=== PATIENT | male | born 1965 | race Caucasian/White ===

== ENCOUNTER → 2018-02-11 09:41 | Outpatient (CLI) | payer OTHER, SELFPAY ==
[2018-02-11 11:22] LABS: Cholesterol 168 mg/dL (200); High Density Lipoprotein 39 mg/dL; Triglycerides 117 mg/dL; Very Low Density Lipoprotein 23 mg/dL (5-40)
[2018-02-13 10:13] LABS: Vitamin B12 523 pg/mL (211-911)
--- OUTSIDE RECORDS SUMMARY | 2018-05-17 09:15 | XMS RPT_ITS | Continuity of Care Document ---
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 unexpected p roblems, contact your Primary Care Provider. Call [facility] ([phone]) or report to the closest Emergency Room. Call 911 if necessary. 10/10/16 0812 <Electronically signed by Freddie Beltran MD> Date Freddie Beltran MD Cosigner Signature (If Indicated): Date CC: Diane Peralta DO 06-Oct-2016 Emergency Department Summary Result: Comments: See Note; NOTES: [facility] Medical Records Department [address] [place] [address] Emergency Department Summary 10/06/16 1503 MR#: [id number] Acct: [id number] Name: PRADEEP STYLES Rep #: [id number] : 1965 51 From: Freddie Beltran MD PCP: Diane Peralta DO Status: REG ER - ER Visit Summary Date of Service: 10/06/16 Chief Complaint: [] History of Present I llness: The patient is a 51 M [] Physical Examination: [] Test Results: [] Emergency Department Course and Treatment: [] Treatment Plan: [] Disposition: [] Impression: [] ED Disposition - Plan for ED Patient: Chief Complaint: Edema Instructions: ED Palsy Peroneal Nerve Prescriptions: Etodolac [Lodine] 300 mg PO TIDCM #30 capsule Referrals: Diane Peralta DO [Primary Care Provider] - 1 Week What to do if you have Problems For any increased pain, shortness of breath, bleeding, nausea or vomiting, chest pain, or any unexpected problems, contact your Primary Care Provider. Call Doctors Re gist ([phone]) or report to the closest Emergency Room. Call 911 if necessary. 10/06/16 1505 <Electronically signed by Freddie Beltran MD> Date Freddie Beltran MD Cosigner Signature (If Indicated): Date CC: Diane Peralta DO 05-Feb-2015 Spirometry ([id number]) Result: 22-Nov-2014 PT Discharge Summary Result: Comments: See Note; NOTES: [facility] Physical Therapy Health[address] [place] [address] Fax REHABILITATION SERVICES DISCHARGE SUMMARY MR#: [id number] Acct: [id number] Name: PRADEEP STYLES Rep #: [id number] : 1965 49 From: Abimael Otto Referring Dr.: OUT OF TOWN DOCTOR Status: REG RCR Eval Date: Dis charge Date: DATE OF SERVICE: DIAGNOSES: Dizziness, giddiness. PHYSICIAN: Dr. Kat. DATE OF DISCHARGE: November 21, 2014. Pradeep Styles was seen in my office for a total of 9 visits. He was seen initially back on October 18, 2014 with latest visit being on November 21, 2014 and was treated with right-sided Benny maneuver, which did seem to help with his dizziness. He was treated with balance and neck exercises, range of motion, manual therapy, stretching and ultrasound. He has progressed to the point where his balance is scoring 30/30 on the functional gait assessment. He is not complaining of any dizziness anymore and he still does have some right-sided neck pain, which is pretty common for him and some difficulty with some limited right rotation, cervical range of motio n. He rates his pain at 5/10 on the right side of his neck intermittently, but he is overall 80% better. He saw Dr. Kat last week. He has met both goals set for him here at the initial evaluation a nd at this point I am discontinuing him from physical therapy to continue his home exercise program. Abimael Otto, PT T: NTS JOB: [id number] <Electronically signed by Abimael Otto &#6 2; 11/22/14 0652 CC: Diane OLIVA Signed 06-Nov-2014 Brain/Head without Contrast Result: Comments: See Note; NOTES: [facility] Imaging Services [address] [place] [address] CAT Scan Report MR#: [id number] Acct: [id number] Name: PRADEEP STYLES Rep #: [id number] : 1965 M 49 From: Riaz Boateng DO PCP: Diane Peralta DO Status: REG CLI Study: Brain/Head without Contrast Date of Exam: 11/06/14 Exam# [id number] Ordering Dr: YOGESH NAGEL STUDY : CT BRAIN WITHOUT CONTRAST REASON FOR EXAM: Male, 49 years old. Near syncopal episode following a fall. RADIATION DOSAGE (If Supplied By Facility): CTDIvol = ( 58.44 ) mGy, DLP = ( 1044.77 ) mGyc m TECHNIQUE: Transaxial CT imaging of the brain was performed without administration of intravenous contrast material. COMPARISON: August 13, 2014. FINDINGS: Hypoattenuation changes are associated with the right frontal lobe along its inferior margin. The low-density changes in the adjacent white matter tracts noted on prior study have resolved. These low- density changes are likely secondary to atrophy or encephalomalacia and are best visualized on coronal imaging. Normal soft tissue structures. Normal calvarium. Normal size ventricles and extra-ax ial spaces for the patient's age. Normal white matter tracts of the cerebral hemispheres. Normal basal ganglia and thalami. Normal brainstem. Normal cerebellum. There is no intracranial hemorrhage. There are no findings of an acute ischemic infarction. There is significant membrane thickening identified in the left maxillary sinus and to a lesser extent the ethmoid sinuses predominantly on the left. No acute air-fluid level is demonstrated. There is some minimal membrane thickening in the sphenoid sinus. IMPRESSION: Subtle hypoattenuation is identifi ed along the inferior margin of the right frontal lobe. This is most consistent with focal atrophy or minimal encephalomalacia. The appearance is improved from the prior study. No acute hemorrhage o r asymmetric cerebral edema demonstrated on today's exam. Moderate chronic sinus inflammatory changes. Electronically Signed: Markos Harvey DO at 14:46 EDT , Service arenas pport [phone], CC: Diane Peralta DO; YOGESH NAGEL Extruder Operator Multiple: Signed 21-Oct-2014 Inital Evaluation - PT Result: Comments: See Note; NOTES: [facility] Physical Therapy [facility] [address] [place] [address]. [address] [place] [phone] Fax REHABILITATION SERVICES INITIAL EVALUATION MR#: [id number] Acct: [id number] Name: PRADEEP STYLES Rep #: [id number] : 1965 49 From: Abimael Otto Referring Dr.: OUT OF TOWN DOCTOR Status: REG RCR Insurance: Property [employer] [facility] Eval Date: Patient's Visit Information PRADEEP STYLES is a 49 year old M, referred to Physical Therapy by Out of Town Doctor, YOGESH OLIVA, with a diagnosis of vertig o. Date of Evaluation: 10/18/14 Physical Therapist: Abimael Otto - Visit Plan Frequency: 2-3x /Week Duration: 4-6 Weeks - Subjective Fell after standing and coughing hitting back of head at en d of May. Poor memory. Went to hospital and made sure bleeding stopped. No other treatment needed at the time. Happened in [place] and stayed down there for a while. Seeing neurologist and alexandrain g to find out why this happened. Sees head doctor at [facility]. Was at the Epiliepsy center and ruled out epilepsy. Is wearing a heart monitor to check out cardiac integrity. Equilibrium seems off at times is why he presents today. Happens with changes of position he thinks but memory is poor. Can't recall a pattern. Spins every once in a while if he turns too quick or gets up fast. Sometimes when he l ies in bed. Has been off work due to head injury and is not driving. has watched over him...can't be left alone. Dressing self and getting around at home OK. Putting shoes and sock on is more dif ficult then it used to be. Shoulders hurt intermittently. No recent falls otherwise. - Objective Good C/S AROM without pain. L HD no dizzy or nystagmus. R HD is positive for dizzy of 10 seconds, adan ated with Benny and education - Goals Goal 1:: abolish dizzyness Goal Time Frame: 4-6 Weeks Goal 2:: normal balance test, FGA Goal Time Frame: 4-6 Weeks - Rehabilitation Potential Rehabilitatio n Potential: Fair - Anticipated Interventions Patient/Client Instruction: Educate patient on: Condition, Plan of Care Comments: management condition For the Purpose of:: To improve ability to perfo rm ADL's Comment: vestibular exercises as needed(psoitional/adaptation/balance) For the Purpose of:: To increase tolerance to activity/condition/position Thank you for the opportunity to evaluate your patient. For Medicare and Medicare HMO plans, please review the plan of care and approve it. It will need to be FAXED BACK to us at [phone] for Medicare purposes. Please let me know if there are questions or concerns regarding this plan of care. Physician Signature: Date: <Electronically signed by Abimael hanna mp;#[id number]; 10/21/14 0653 CC: Diane OLIVA EBG Signed For Medicare only, by signing this I certify the plan of care. _ Physicians Signature Date 08-Oct-2014 Operative Report Result: Comments: See Note; NOTES: [facility] Medical Records Department [address] [place] [address] Operative Report MR#: [id number] Acct: [id number] Name: PRADEEP STYLES #: [id number] : 1965 49 From: Sreedhar Simmons MD PCP: Diane Peralta DO Status: REG CLI DATE OF SERVICE: A 49-year-old man with a history of recurrent syncope. PROCEDURE: Implantatio n of a patient-activated cardiac event recorder. INDICATION: Syncope. IMPLANTING PHYSICIAN: Dr. Sreedhar Simmons. DESCRIPTION OF PROCEDURE: The patient was brought to the cardiac catheterization lab in the postabsorptive nonsedated state. She was administered intravenous antibiotics with Ancef. Xylocaine 1% was used to anesthetize over the fourth left intercostal space after appropriate mapping. A stab incision was then made and a Tetra Tech Reveal Linq was deployed successfully. Serial # is [id number]. The patient tolerated the procedure well. Sreedhar Simmons MD T: NTS JOB: [id number] 10/08/14816 <Electronically signed by Sreedhar Simmons MD> Date Sreedhar Simmons MD Cosigner Signature (If Indicated): Date ___ CC: Sreedhar Simmons MD; Diane Peralta DO Date Dictated: 10/07/14916 Date Transcribed: 10/07/14916 Extruder Operator Multiple: Signed 13-Aug-2014 Brain/Head without Contrast Result: Comments: See Note; NOTES: [facility] Imaging Services [address] [place] [address] CAT Scan Report MR#: [id number] Acct: [id number] Name: PRADEEP STYLES Rep #: [id number] : 1965 M 49 From: Sai Mcclure MD PCP: Diane Peralta DO Status: REG CLI Study: Brain/Head without Contrast Date of Exam: 08/13/14 Exam# [id number] Ordering Dr: HERMINIO OLIVER STUDY: CT BRAIN WITHOUT CONTRAST REASON FOR EXAM: Male, 49 years old. Headaches following head trauma. RADIATION DOSAGE (If Supplied By Facility): CTDIvol = ( 58.42 ) mGy, DLP = ( 1044.40 ) mGyc m TECHNIQUE: Transaxial CT imaging of the brain was performed without administration of intravenous contrast material. COMPARISON: Comparison is made with prior study dated April 14, 2013. ____ FINDINGS: Normal soft tissue structures. Normal calvarium. Normal size ventricles and extra-axial spaces for the patient's age. There now is evidence of a focal are a of decreased attenuation along the inferior aspect of the right frontal lobe anteriorly. This is within the white matter. No significant mass effect is seen. Correlation with enhanced CT scan is re commended. Normal basal ganglia and thalami. Normal brainstem. Normal cerebellum. There is no intracranial hemorrhage. There are no findings of an acute ischemic infarction. Normal visualized para nasal sinuses. There is nasal septal deviation towards the left side of the midline. IMPRESSION: Focal area of decreased attenuation is seen in the right frontal lobe along the inferior aspect. This may be related to the recent trauma. A repeat CT scan following IV contrast is recommended. Electronically Signed: Sai Mcclure MD at 8:46 E DT Tel [phone], Service support [phone], CC: Diane Peralta DO; HERMINIO OLIVER Extruder Operator Multiple: Signed 19-Nov-2013 B 12 Injection, 1000 mcg ([id number]) Result: Comments: lot [id number] 10/2013location ldeltoidroute imgiven by - msmith VIS and/or ABN signed 02-May-2013 Carotid Duplex Ultrasound Result: Comments: See Note; NOTES: [facility] Cardiovascular Services [address] [place] [address] Carotid Duplex Ultrasound 05/01/13 0849 MR#: [id number] Acct: [id number] Ayush e: PRADEEP STYLES Rep #: [id number] : 1965 48 From: Raymond Fofana MD Attending Dr: Kelsy Villanueva Status: REG CLI Ordering Dr: Kelsy Villanueva Date: 05/01/13 Location: [facility] Sex: M C Admitted: Rt. Velocities/BP Lt. Velocities/BP Prox CCA 85.6/32.2 cm/sec. Prox CCA 89.1/ 24.0 cm/sec. Mid CCA 72.1/23.5 cm/sec. Mid CCA 80.9/28.7 cm/sec. Dist CCA 71.5/27.0 cm/sec. Dist CCA 70.4/ 28.7 cm/sec. Prox ICA 53.4/20.8 cm/sec. Prox ICA 65.7/ 31.1 cm/sec. Mid ICA 56.2/25.9 cm/sec. Mid ICA 76.2/40.5 cm/sec. Dist ICA 73.9/32.2 cm/sec. Dist ICA 70.4/ 30.5 cm/sec. Rt. ICA/CCA = 1.0. Lt. ICA/CCA = . 94. Prox ECA 70.9/18.2 cm/sec. Prox ECA 78.6/ 24.0 cm/sec. Rt. Vert. 52.2/15.8 cm/sec. Lt. Vert. 45.2/ 18.9 cm/sec. Right Extracranial There is no significant atherosclerotic plaque noted in the ri ght common carotid artery. There is no significant atherosclerotic plaque noted in the right internal carotid artery. There is no significant atherosclerotic plaque noted in the right external carot id artery. Antegrade flow is noted in the right vertebral artery. Left Extracranial There is no significant atherosclerotic plaque noted in the left common carotid artery. There is no significant atherosclerotic plaque noted in the left internal carotid artery. There is no significant atherosclerotic plaque noted in the left external carotid artery. Antegrade flow is noted in the left verteb ral artery. Procedure Carotid Duplex 61402. Exam performed in department. Interpretation Summary Mild (<50%) stenosis right extracranial internal carotid. Mild (<50%) stenosis lef t extracranial internal carotid. Flow within the vertebral arteries is antegrade bilaterally. Ordering Physician: Kelsy Villanueva Referring Physician: Diane Peralta M.D. Performed By: Katiuska Rucker RVT : Kelsy Peralta DO Date Dictated: 05/01/13 0849 Date Transcribed: 05/02/13 1115 Extruder Operator Multiple: Signed 4-Mar-2014 Echocardiogram Complete Result: Comments: See Note; NOTES: [facility] Cardiovascular Services [address] [place] [address] Echo Complete 05/01/13 0952 MR#: [id number] Acct: [id number] Name: THERESA STYLES Rep #: [id number] : 1965 48 From: Herminio Barry MD Attending Dr: Kelsy Villanueva Status: REG CLI Ordering Dr: Kelsy Villanueva Date: 05/01/13 Location: [facility] Sex: M C Admitted: Procedure This was a 2D Doppler, Color Flow transthoracic echocardiogram. The exam was of adequate technical quality. Exam performed in department. Left Ventricle Normal LV size. Mild concentric left ventric ular hypertrophy. Left ventricular systolic function is normal. The estimated ejection fraction is 65 %. Transmitral doppler flow suggestive of impaired relaxation of left ventricle. Right Ventric le Normal RV size. Normal systolic function. Atria Normal left atrium. Normal right atrium. No doppler evidence for ASD. Mitral Valve There is no mitral annular calcification. Normal mitral valve . Tricuspid Valve Normal tricuspid valve. Trivial tricuspid valve insufficiency. Aortic Valve Trisinus/trileaflet aortic valve. Normal aortic valve. Pulmonic Valve The pulmonic valve is not wel l visualized. Great Vessels Normal sized aortic root. Pericardium/Pleural No pericardial effusion. LVIDd: 3.9 cm IVSd: 1.3 cm Ao root diam: 3.4 cm LAV(MOD-bp): 42.3 ml LVIDs: 2.4 cm LVPWd: 1. 3 cm Ao root area: 9.2 cm2 LAV(MOD-bp) Indexed: 20.3 ml/m2 RVDd: 3.2 cm FS: 37.8 % LA dimension: 3.4 cm LAV(MOD-sp2): 38.1 ml LAV(MOD-sp4): 42.4 ml LA A4 area: 17.1 cm2 RA A4 area: 13.7 cm2 MV E max daniel: Lat Peak E' Daniel: Med Peak E' Daniel: Ao V2 max: 72.7 cm/sec 13.1 cm/sec 14.1 cm/sec 129.5 cm/sec MV A max v el: Ao max P.7 mmHg 90.8 cm/sec MV E/A: 0.80 LV V1 max: 127.7 cm/sec PA V2 max: 97.4 cm/sec E/E' lat: 5.6 E /E ' med: 5.2 LV V1 max P.5 mmHg PA max P.8 mmHg Interpretation Summary Left ventricular systolic function is normal. The estimated ejection fraction is 65 %. Mild concentric left ventricular hypertrophy. Trivial tricuspid valve insufficiency. Transmitral doppler flow suggestive of impaired relaxation of left ventricle Ordering Physician: Kelsy Villanueva Referring Physician: Diane Peralta M.D. Performed By: Dianne Collins RDCS Electronically signed by: Herminio Barry MD on 05/2013 06:35 PM CC: Kelsy Peralta DO Date Dictated: 05/01/13 0952 Date Transcribed: 05/01/13 1835 Extruder Operator Multiple: Signed 01-May-2013 Nuclear Stress Test - Chemical Result: Comments: See Note; NOTES: [facility] Imaging Services [address] [place] [address] Nuclear Medicine Report MR#: [id number] Acct: [id number] Name: PRADEEP STYLES Rep # : [id number] : 1965 M 48 From: Herminio Barry MD PCP: Diane Peralta DO Status: REG CLI Study: Nuclear Stress Test - Chemical Date of Exam: 05/01/13 Exam# [id number] Ordering Dr: Kourtney Villanueva EXERCISE TOLERANCE TEST: The patient exercised on a Toby protocol for 12 minutes completing state 4 achieving a peak heart rate of 171 beats per minute (100% predicted maximum heart rate) and a peak blood pressure of 168/82 mmHg and a peak MET capacity of approximately 13 METS. The baseline ECG demonstrated normal sinus rhythm. The peak exercise ECG demonstrated no obvious ECG changes. There were no cardiac dysrhythmias pretest, during exercise, or recovery. The functional capacity was considered excellent. The patient had no complaint of chest discomfort during exercise or shane very. The examination was discontinued secondary to dyspnea. IMPRESSION: 1. Technically adequate (percent predicted maximum heart rate greater than 85%) exercise tolerance test. 2. Negative (adequ ate) ECG exercise tolerance test. 3. Nuclear images pending. MYOCARDIAL PERFUSION IMAGING STUDY: TECHNIQUE: The patient was injected with 11.6 mCi of Tc99m Cardiolite and subsequently rest SPECT C ardiolite nuclear imaging was obtained in the horizontal long, vertical long, and short axes views. The patient exercised on a Toby protocol for 12 minutes achieving a peak heart rate of 171 beats pe r minute (100% predicted maximum heart rate) with a peak blood pressure of 168/82 mmHg and a peak MET capacity of approximately 13 METS. The patient was injected with 33.1 mCi of Tc99m Cardiolite and subsequently stress SPECT Cardiolite nuclear imaging was obtained in the horizontal long, vertical long, and short axes views. A gated Cardiolite study at peak stress was obtained. INTERPRETATION: Rest and stress SPECT Cardiolite nuclear imaging demonstrate at rest extracardiac/hepatic and gastrointestinal tracer uptake, which appears to be less prominent and/or absent following stress. There is notation of an element of diminished tracer uptake in portions of the basal inferoseptal and basal inferior segments, which appear to be somewhat more prominent at rest as opposed to stress. Otherw ise, there appears to be relative uniform tracer uptake. There was end systolic thickening and brightening. The gated Cardiolite study demonstrates myocardial thickening and inward wall motion. The re ported LVEF is 58%. There were no myocardial perfusion changes considered diagnostic for stress induced myocardial ischemia or previous myocardial injury/infarction. IMPRESSION: 1. Rest and stress S PECT Cardiolite nuclear imaging demonstrate myocardial perfusion changes appearing compatible with the effects of soft tissue attenuation/artifact with no myocardial perfusion changes considered diagn ostic for stress induced myocardial ischemia or previous myocardial injury/infarction. 2. The gated Cardiolite study reports an LVEF of 58%. CC: Kelsy Villanueva; Diane Peralta DO Extruder Operator Multiple: TEODORO Signed 16-Jan-2013 Foot min 3 Views Result: Comments: See Note; NOTES: [facility] Imaging Services [address] [place] [address] Radiology Report MR#: [id number] Acct: [id number] Name: PRADEEP STYLES Rep #: [id number] : 1965 M 47 From: Sai Mcclure MD PCP: Diane Peralta DO Status: REG CLI Study: Foot min 3 Views Date of Exam: 01/16/13 Exam# [id number] Ordering Dr: Kelsy Villanueva STUDY: X-RA Y - RIGHT FOOT CLINICAL: Male, 47 years old. Pain at the base of the fifth metatarsal. TECHNIQUE: 3 view(s) of the foot. COMPARISON: None. FINDINGS: There i s a plantar calcaneal spur. A spur is seen at the insertion of the Achilles tendon. Normal visualized subtalar, talonavicular, calcaneocuboid, tarsal and tarsometatarsal articulations. Normal meta tarsi. Normal metatarsophalangeal joint of the great toe. Normal tibial and fibular sesamoid bones. Normal interphalangeal joint of the great toe. Normal phalanges of the great toe. Normal second through fifth metatarsophalangeal joints. Normal interphalangeal joints and phalanges of the lesser toes. The soft tissue structures are unremarkable. IMPRESSIO N: Calcaneal spurs. Signed: Sai Mcclure M.D. January 16, 2013 at 12:37:26 PM EST [phone] Electronically Signed GP/GP If you are the referring physician and would like to consult with the radiologist who provided this interpretation, please contact Sai Mcclure M.D. at [phone]. If this radiologist is unavailable, you will be directed to another radiologist to ass ist. If you are a patient with a question regarding this report, please contact your referring physician directly. Professional Interpretation Provided By: [employer], Phone , Fax These documents contain legally protected and confidential health information intended only for the use of the individual or entity named above. If you are not the intended recipient, you are hereby notified that any disclosure, copying, distribution, or other use of these documents is strictly prohibited. If you have received this information in error, please notify the sender immed iately and arrange for the return or destruction of these documents. 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 Comments: 01/01/11, 04/23/11, 05/07/11, 06/10/11 Status: Active Tobacco use: Current every day smoker. Status: Active Tobacco use: Current some day smoker. Status: Active Smoking Status Name Dates Details Current every day smoker Current some day smoker Vital Signs Date Test Result Details [id number] Temperature 97.9 f Pulse 78 /min Comments: Pattern: Regular Respiration Rate 18 /min Comments: Pattern: Unlabored O2 SAT 98 % Comments: Room air BP Systolic 132 mm[Hg] Comments: Patient Position: Sitting; Cuff Location: Left Arm; Cuff Size: Standard BP Diastolic 76 mm[Hg] Comments: Patient Position: Sitting; Cuff Location: Left Arm; Cuff Size: Standard Weight 224 lb Height 69 in Body Mass Index Calculated 33.08 kg/m2 Body Surface Area Calculated 2.17 m2 :40 Temperature 97.6 f Pulse 81 /min Comments: Pattern: Regular Respiration Rate 15 /min Comments: Pattern: Unlabored O2 SAT 97 % Comments: Room air BP Systolic 122 mm[Hg] Comments: Patient Position: Sitting; Cuff Location: Left Arm; Cuff Size: Standard BP Diastolic 82 mm[Hg] Comments: Patient Position: Sitting; Cuff Location: Left Arm; Cuff Size: Standard Weight 228 lb Height 69 in Body Mass Index Calculated 33.67 kg/m2 Body Surface Area Calculated 2.18 m2 [id number]-Uyw-[id number]:41 Temperature 98.2 f Comments: Method: Temporal Pulse 72 /min Comments: Pattern: Regular Respiration Rate 16 /min Comments: Pattern: Unlabored O2 SAT 97 % Comments: Room air BP Systolic 112 mm[Hg] Comments: Patient Position: Sitting; Cuff Location: Left Arm; Cuff Size: Standard BP Diastolic 78 mm[Hg] Comments: Patient Position: Sitting; Cuff Location: Left Arm; Cuff Size: Standard Weight 228 lb Height 69 in Body Mass Index Calculated 33.67 kg/m2 Body Surface Area Calculated 2.18 m2 :49 Pulse 62 /min Comments: Pattern: Regular Respiration Rate 16 /min Comments: Pattern: Unlabored O2 SAT 96 % Comments: Room air BP Systolic 104 mm[Hg] Comments: Patient Position: Sitting; Cuff Location: Left Arm; Cuff Size: Standard BP Diastolic 68 mm[Hg] Comments: Patient Position: Sitting; Cuff Location: Left Arm; Cuff Size: Standard Weight 223 lb Height 69 in Body Mass Index Calculated 32.93 kg/m2 Body Surface Area Calculated 2.16 m2 :08 Pulse 70 /min Comments: Pattern: Regular Respiration Rate 18 /min Comments: Pattern: Unlabored O2 SAT 94 % Comments: Room air BP Systolic 118 mm[Hg] Comments: Patient Position: Sitting; Cuff Location: Left Arm; Cuff Size: Standard BP Diastolic 70 mm[Hg] Comments: Patient Position: Sitting; Cuff Location: Left Arm; Cuff Size: Standard Weight 223 lb Height 69 in Body Mass Index Calculated 32.93 kg/m2 Body Surface Area Calculated 2.16 m2 :36 Pulse 70 /min Comments: Pattern: Regular Respiration Rate 18 /min Comments: Pattern: Unlabored O2 SAT 97 % Comments: Room air BP Systolic 120 mm[Hg] Comments: Patient Position: Sitting; Cuff Location: Left Arm; Cuff Size: Large BP Diastolic 78 mm[Hg] Comments: Patient Position: Sitting; Cuff Location: Left Arm; Cuff Size: Large Weight 223 lb Height 69 in Body Mass Index Calculated 32.93 kg/m2 Body Surface Area Calculated 2.16 m2 :50 Pulse 77 /min Comments: Pattern: Regular Respiration Rate 20 /min Comments: Pattern: Unlabored O2 SAT 98 % Comments: Room air BP Systolic 122 mm[Hg] Comments: Patient Position: Sitting; Cuff Location: Left Arm; Cuff Size: Large BP Diastolic 80 mm[Hg] Comments: Patient Position: Sitting; Cuff Location: Left Arm; Cuff Size: Large Weight 229.5 lb Height 69 in Body Mass Index Calculated 33.89 kg/m2 Body Surface Area Calculated 2.19 m2 :46 Temperature 97.8 f Comments: Method: Temporal Pulse 83 /min Comments: Pattern: Regular Respiration Rate 16 /min Comments: Pattern: Unlabored O2 SAT 98 % Comments: Room air BP Systolic 126 mm[Hg] Comments: Patient Position: Sitting; Cuff Location: Left Arm; Cuff Size: Large BP Diastolic 80 mm[Hg] Comments: Patient Position: Sitting; Cuff Location: Left Arm; Cuff Size: Large Weight 217.25 lb Height 69 in Body Mass Index Calculated 32.08 kg/m2 Body Surface Area Calculated 2.14 m2 :25 Temperature 96.4 f Comments: Method: Tympanic Pulse 56 /min Comments: Pattern: Regular Respiration Rate 18 /min Comments: Pattern: Unlabored O2 SAT 97 % Comments: Room air BP Systolic 100 mm[Hg] Comments: Patient Position: Sitting; Cuff Location: Left Arm; Cuff Size: Standard BP Diastolic 72 mm[Hg] Comments: Patient Position: Sitting; Cuff Location: Left Arm; Cuff Size: Standard Weight 217.25 lb Height 69 in Body Mass Index Calculated 32.08 kg/m2 Body Surface Area Calculated 2.14 m2 :17 Temperature 96.8 f Comments: Method: Temporal Respiration Rate 17 /min Comments: Pattern: Unlabored O2 SAT 97 % Comments: Room air BP Systolic 138 mm[Hg] Comments: Patient Position: Sitting; Cuff Location: Left Arm; Cuff Size: Large BP Diastolic 74 mm[Hg] Comments: Patient Position: Sitting; Cuff Location: Left Arm; Cuff Size: Large Weight 217.25 lb Height 69 in Body Mass Index Calculated 32.08 kg/m2 Body Surface Area Calculated 2.14 m2 :00 Temperature 97.6 f Comments: Method: Temporal Pulse 83 /min Comments: Pattern: Regular Respiration Rate 17 /min Comments: Pattern: Unlabored O2 SAT 97 % Comments: Room air BP Systolic 122 mm[Hg] Comments: Patient Position: Sitting; Cuff Location: Left Arm; Cuff Size: Standard BP Diastolic 80 mm[Hg] Comments: Patient Position: Sitting; Cuff Location: Left Arm; Cuff Size: Standard Weight 208.3125 lb Height 69 in Body Mass Index Calculated 30.76 kg/m2 Body Surface Area Calculated 2.1 m2 :26 Temperature 97.7 f Comments: Method: Oral Pulse 80 /min Comments: Pattern: Regular Respiration Rate 18 /min Comments: Pattern: Unlabored O2 SAT 95 % Comments: Room air BP Systolic 120 mm[Hg] Comments: Patient Position: Sitting; Cuff Location: Left Arm; Cuff Size: Large BP Diastolic 72 mm[Hg] Comments: Patient Position: Sitting; Cuff Location: Left Arm; Cuff Size: Large Weight 208.3125 lb Height 69 in Body Mass Index Calculated 30.76 kg/m2 Body Surface Area Calculated 2.1 m2 :53 Pulse 97 /min Comments: Pattern: Regular Respiration Rate 16 /min Comments: Pattern: Unlabored O2 SAT 99 % Comments: Room air BP Systolic 130 mm[Hg] Comments: Patient Position: Sitting; Cuff Location: Left Arm; Cuff Size: Standard BP Diastolic 86 mm[Hg] Comments: Patient Position: Sitting; Cuff Location: Left Arm; Cuff Size: Standard Weight 208.3125 lb Height 69 in Body Mass Index Calculated 30.76 kg/m2 Body Surface Area Calculated 2.1 m2 :02 Temperature 98.6 f Comments: Method: Oral Pulse 82 /min Comments: Pattern: Regular Respiration Rate 17 /min O2 SAT 97 % Comments: Room air BP Systolic 132 mm[Hg] Comments: Patient Position: Sitting; Cuff Location: Left Arm; Cuff Size: Standard BP Diastolic 82 mm[Hg] Comments: Patient Position: Sitting; Cuff Location: Left Arm; Cuff Size: Standard Weight 207 lb Height 69 in Body Mass Index Calculated 30.57 kg/m2 Body Surface Area Calculated 2.1 m2 :12 Temperature 98 f Pulse 78 /min Comments: Pattern: Regular Respiration Rate 16 /min Comments: Pattern: Unlabored BP Systolic 122 mm[Hg] Comments: Patient Position: Sitting; Cuff Location: Left Arm; Cuff Size: Large BP Diastolic 86 mm[Hg] Comments: Patient Position: Sitting; Cuff Location: Left Arm; Cuff Size: Large Weight 207 lb Height 69 in Body Mass Index Calculated 30.57 kg/m2 Body Surface Area Calculated 2.1 m2 :33 Pulse 70 /min Comments: Pattern: Regular Respiration Rate 18 /min Comments: Pattern: Unlabored O2 SAT 96 % Comments: Room air BP Systolic 118 mm[Hg] Comments: Patient Position: Sitting; Cuff Location: Left Arm; Cuff Size: Large BP Diastolic 80 mm[Hg] Comments: Patient Position: Sitting; Cuff Location: Left Arm; Cuff Size: Large Weight 216.375 lb Height 69 in Body Mass Index Calculated 31.95 kg/m2 Body Surface Area Calculated 2.14 m2 :18 Temperature 98.6 f Comments: Method: Oral Pulse 82 /min Comments: Pattern: Regular Respiration Rate 16 /min O2 SAT 98 % Comments: Room air BP Systolic 126 mm[Hg] Comments: Patient Position: Sitting; Cuff Location: Left Arm; Cuff Size: Standard BP Diastolic 72 mm[Hg] Comments: Patient Position: Sitting; Cuff Location: Left Arm; Cuff Size: Standard Weight 209 lb Height 69 in Body Mass Index Calculated 30.86 kg/m2 Body Surface Area Calculated 2.1 m2 :40 Temperature 98.6 f Comments: Method: Oral Pulse 86 /min Comments: Pattern: Regular Respiration Rate 18 /min O2 SAT 96 % Comments: Room air BP Systolic 124 mm[Hg] Comments: Patient Position: Sitting; Cuff Location: Left Arm; Cuff Size: Standard BP Diastolic 76 mm[Hg] Comments: Patient Position: Sitting; Cuff Location: Left Arm; Cuff Size: Standard Weight 198.125 lb Height 69 in Body Mass Index Calculated 29.26 kg/m2 Body Surface Area Calculated 2.06 m2 :26 Temperature 98 f Comments: Method: Oral Pulse 68 /min Comments: Pattern: Regular Respiration Rate 18 /min O2 SAT 98 % Comments: Room air BP Systolic 130 mm[Hg] Comments: Patient Position: Sitting; Cuff Location: Left Arm; Cuff Size: Standard BP Diastolic 88 mm[Hg] Comments: Patient Position: Sitting; Cuff Location: Left Arm; Cuff Size: Standard Weight 198.125 lb Height 69 in Body Mass Index Calculated 29.26 kg/m2 Body Surface Area Calculated 2.06 m2 :19 Temperature 98.6 f Comments: Method: Oral Pulse 80 /min Comments: Pattern: Regular O2 SAT 97 % Comments: Room air BP Systolic 120 mm[Hg] Comments: Patient Position: Sitting; Cuff Location: Left Arm; Cuff Size: Standard BP Diastolic 72 mm[Hg] Comments: Patient Position: Sitting; Cuff Location: Left Arm; Cuff Size: Standard Weight 198.125 lb Height 69 in Body Mass Index Calculated 29.26 kg/m2 Body Surface Area Calculated 2.06 m2 :20 Temperature 97.8 f Comments: Method: Oral Pulse 74 /min Comments: Pattern: Regular Respiration Rate 18 /min Comments: Pattern: Unlabored O2 SAT 94 % Comments: Room air BP Systolic 118 mm[Hg] Comments: Patient Position: Sitting; Cuff Location: Left Arm; Cuff Size: Standard BP Diastolic 70 mm[Hg] Comments: Patient Position: Sitting; Cuff Location: Left Arm; Cuff Size: Standard Weight 198.125 lb Height 69 in Body Mass Index Calculated 29.26 kg/m2 Body Surface Area Calculated 2.06 m2 :37 Temperature 98.1 f Comments: Method: Oral Pulse 76 /min Comments: Pattern: Regular Respiration Rate 16 /min BP Systolic 110 mm[Hg] Comments: Patient Position: Sitting; Cuff Location: Left Arm; Cuff Size: Standard BP Diastolic 70 mm[Hg] Comments: Patient Position: Sitting; Cuff Location: Left Arm; Cuff Size: Standard Weight 202.4375 lb Height 69 in Body Mass Index Calculated 29.89 kg/m2 Body Surface Area Calculated 2.08 m2 :13 Temperature 98.2 f Comments: Method: Oral Pulse 68 /min Comments: Pattern: Regular Respiration Rate 18 /min O2 SAT 98 % Comments: Room air BP Systolic 100 mm[Hg] Comments: Patient Position: Sitting; Cuff Location: Left Arm; Cuff Size: Standard BP Diastolic 72 mm[Hg] Comments: Patient Position: Sitting; Cuff Location: Left Arm; Cuff Size: Standard Weight 202.4375 lb Height 69 in Body Mass Index Calculated 29.89 kg/m2 Body Surface Area Calculated 2.08 m2 :54 Temperature 98.8 f Comments: Method: Oral Pulse 72 /min Comments: Pattern: Regular Respiration Rate 16 /min Comments: Pattern: Unlabored BP Systolic 98 mm[Hg] Comments: Patient Position: Sitting; Cuff Location: Left Arm; Cuff Size: Large BP Diastolic 58 mm[Hg] Comments: Patient Position: Sitting; Cuff Location: Left Arm; Cuff Size: Large Weight 194.3125 lb Height 69 in Body Mass Index Calculated 28.69 kg/m2 Body Surface Area Calculated 2.04 m2 :45 Pulse 80 /min Comments: Pattern: Regular Respiration Rate 20 /min Comments: Pattern: Unlabored BP Systolic 120 mm[Hg] Comments: Patient Position: Sitting; Cuff Location: Left Arm; Cuff Size: Standard BP Diastolic 80 mm[Hg] Comments: Patient Position: Sitting; Cuff Location: Left Arm; Cuff Size: Standard Weight 194.3125 lb Height 69 in Body Mass Index Calculated 28.69 kg/m2 Body Surface Area Calculated 2.04 m2 :19 Temperature 97.8 f Comments: Method: Oral Pulse 76 /min Comments: Pattern: Regular Respiration Rate 18 /min Comments: Pattern: Unlabored BP Systolic 120 mm[Hg] Comments: Patient Position: Sitting; Cuff Location: Left Arm; Cuff Size: Standard BP Diastolic 72 mm[Hg] Comments: Patient Position: Sitting; Cuff Location: Left Arm; Cuff Size: Standard Weight 191 lb Height 69 in Body Mass Index Calculated 28.21 kg/m2 Body Surface Area Calculated 2.03 m2 :22 Temperature 98.4 f Comments: Method: Oral Pulse 64 /min Comments: Pattern: Regular Respiration Rate 18 /min O2 SAT 99 % Comments: Room air BP Systolic 126 mm[Hg] Comments: Patient Position: Sitting; Cuff Location: Left Arm; Cuff Size: Standard BP Diastolic 78 mm[Hg] Comments: Patient Position: Sitting; Cuff Location: Left Arm; Cuff Size: Standard Weight 189.125 lb Height 69 in Body Mass Index Calculated 27.93 kg/m2 Body Surface Area Calculated 2.02 m2 :18 Pulse 78 /min Comments: Pattern: Regular Respiration Rate 18 /min Comments: Pattern: Unlabored BP Systolic 120 mm[Hg] Comments: Patient Position: Sitting; Cuff Location: Left Arm; Cuff Size: Standard BP Diastolic 74 mm[Hg] Comments: Patient Position: Sitting; Cuff Location: Left Arm; Cuff Size: Standard Weight 189.125 lb Height 69 in Body Mass Index Calculated 27.93 kg/m2 Body Surface Area Calculated 2.02 m2 :52 Temperature 97.9 f Comments: Method: Oral Pulse 88 /min Comments: Pattern: Regular Respiration Rate 18 /min Comments: Pattern: Unlabored O2 SAT 94 % Comments: Room air BP Systolic 124 mm[Hg] Comments: Patient Position: Sitting; Cuff Location: Left Arm; Cuff Size: Standard BP Diastolic 78 mm[Hg] Comments: Patient Position: Sitting; Cuff Location: Left Arm; Cuff Size: Standard Weight 191.125 lb Height 69 in Body Mass Index Calculated 28.22 kg/m2 Body Surface Area Calculated 2.03 m2 :03 Temperature 97.5 f Comments: Method: Oral Pulse 68 /min Comments: Pattern: Regular Respiration Rate 20 /min Comments: Pattern: Unlabored BP Systolic 122 mm[Hg] Comments: Patient Position: Sitting; Cuff Location: Left Arm; Cuff Size: Standard BP Diastolic 82 mm[Hg] Comments: Patient Position: Sitting; Cuff Location: Left Arm; Cuff Size: Standard Weight 191.25 lb Height 69 in Body Mass Index Calculated 28.24 kg/m2 Body Surface Area Calculated 2.03 m2 :47 Pulse 80 /min Comments: Pattern: Regular Respiration Rate 20 /min Comments: Pattern: Unlabored BP Systolic 118 mm[Hg] Comments: Patient Position: Sitting; Cuff Location: Left Arm; Cuff Size: Large BP Diastolic 80 mm[Hg] Comments: Patient Position: Sitting; Cuff Location: Left Arm; Cuff Size: Large Weight 190.1875 lb Height 69 in Body Mass Index Calculated 28.09 kg/m2 Body Surface Area Calculated 2.02 m2 :19 Temperature 97.9 f Comments: Method: Oral Pulse 76 /min Comments: Pattern: Regular O2 SAT 97 % Comments: Room air BP Systolic 134 mm[Hg] Comments: Patient Position: Sitting; Cuff Location: Left Arm; Cuff Size: Standard BP Diastolic 82 mm[Hg] Comments: Patient Position: Sitting; Cuff Location: Left Arm; Cuff Size: Standard Weight 186.125 lb Height 69 in Body Mass Index Calculated 27.49 kg/m2 Body Surface Area Calculated 2 m2 :32 Pulse 76 /min Comments: Pattern: Regular Respiration Rate 17 /min Comments: Pattern: Unlabored BP Systolic 124 mm[Hg] Comments: Patient Position: Sitting; Cuff Location: Left Arm; Cuff Size: Standard BP Diastolic 78 mm[Hg] Comments: Patient Position: Sitting; Cuff Location: Left Arm; Cuff Size: Standard Weight 186.125 lb Height 69 in Body Mass Index Calculated 27.49 kg/m2 Body Surface Area Calculated 2 m2 :02 Pulse 68 /min Comments: Pattern: Regular Respiration Rate 16 /min Comments: Pattern: Unlabored Weight 186.125 lb Height 69 in Body Mass Index Calculated 27.49 kg/m2 Body Surface Area Calculated 2 m2 :43 Pulse 72 /min Comments: Pattern: Regular Respiration Rate 20 /min Comments: Pattern: Unlabored BP Systolic 128 mm[Hg] Comments: Patient Position: Sitting; Cuff Location: Left Arm; Cuff Size: Large BP Diastolic 84 mm[Hg] Comments: Patient Position: Sitting; Cuff Location: Left Arm; Cuff Size: Large Weight 188.125 lb Height 69 in Body Mass Index Calculated 27.78 kg/m2 Body Surface Area Calculated 2.01 m2 :43 Temperature 97.6 f Comments: Method: Oral Pulse 68 /min Comments: Pattern: Regular Respiration Rate 20 /min Comments: Pattern: Unlabored BP Systolic 122 mm[Hg] Comments: Patient Position: Sitting; Cuff Location: Left Arm; Cuff Size: Large BP Diastolic 78 mm[Hg] Comments: Patient Position: Sitting; Cuff Location: Left Arm; Cuff Size: Large Weight 188.375 lb Height 69 in Body Mass Index Calculated 27.82 kg/m2 Body Surface Area Calculated 2.01 m2 :58 Temperature 97.2 f Comments: Method: Oral Pulse 80 /min Comments: Pattern: Regular Respiration Rate 18 /min Comments: Pattern: Unlabored O2 SAT 97 % Comments: Room air BP Systolic 116 mm[Hg] Comments: Patient Position: Sitting; Cuff Location: Left Arm; Cuff Size: Standard BP Diastolic 78 mm[Hg] Comments: Patient Position: Sitting; Cuff Location: Left Arm; Cuff Size: Standard Weight 194.5625 lb :33 Pulse 60 /min Comments: Pattern: Regular Respiration Rate 20 /min Comments: Pattern: Unlabored BP Systolic 118 mm[Hg] Comments: Patient Position: Sitting; Cuff Location: Left Arm; Cuff Size: Large BP Diastolic 64 mm[Hg] Comments: Patient Position: Sitting; Cuff Location: Left Arm; Cuff Size: Large Weight 194.5625 lb :38 Temperature 97.5 f Comments: Method: Oral Pulse 86 /min Comments: Pattern: Regular Respiration Rate 18 /min Comments: Pattern: Unlabored BP Systolic 118 mm[Hg] Comments: Patient Position: Sitting; Cuff Location: Left Arm; Cuff Size: Standard BP Diastolic 72 mm[Hg] Comments: Patient Position: Sitting; Cuff Location: Left Arm; Cuff Size: Standard Weight 195.5625 lb :50 Pulse 60 /min Comments: Pattern: Regular Respiration Rate 20 /min Comments: Pattern: Unlabored BP Systolic 122 mm[Hg] Comments: Patient Position: Sitting; Cuff Location: Left Arm; Cuff Size: Large BP Diastolic 82 mm[Hg] Comments: Patient Position: Sitting; Cuff Location: Left Arm; Cuff Size: Large Weight 195.5625 lb :07 Temperature 96.3 f Comments: Method: Oral Pulse 80 /min Comments: Pattern: Regular Respiration Rate 18 /min Comments: Pattern: Unlabored BP Systolic 112 mm[Hg] Comments: Patient Position: Sitting; Cuff Location: Right Arm; Cuff Size: Large BP Diastolic 62 mm[Hg] Comments: Patient Position: Sitting; Cuff Location: Right Arm; Cuff Size: Large Weight 0 lb Height 0 in Head Circumference 0.00 cm :09 Pulse 72 /min Comments: Pattern: Regular Respiration Rate 20 /min Comments: Pattern: Unlabored BP Systolic 122 mm[Hg] Comments: Patient Position: Sitting; Cuff Location: Right Arm; Cuff Size: Large BP Diastolic 82 mm[Hg] Comments: Patient Position: Sitting; Cuff Location: Right Arm; Cuff Size: Large Weight 194 lb Height 0 in Head Circumference 0.00 cm :27 Pulse 80 /min Comments: Pattern: Regular Respiration Rate 20 /min Comments: Pattern: Unlabored O2 SAT 97 % Comments: Room air BP Systolic 118 mm[Hg] Comments: Patient Position: Sitting; Cuff Location: Left Arm; Cuff Size: Large BP Diastolic 74 mm[Hg] Comments: Patient Position: Sitting; Cuff Location: Left Arm; Cuff Size: Large Weight 194 lb Height 0 in Head Circumference 0.00 cm :56 Temperature 96.8 f Comments: Method: Oral Pulse 92 /min Comments: Pattern: Regular Respiration Rate 18 /min Comments: Pattern: Unlabored O2 SAT 96 % Comments: Room air BP Systolic 102 mm[Hg] Comments: Patient Position: Sitting; Cuff Location: Left Arm; Cuff Size: Standard BP Diastolic 68 mm[Hg] Comments: Patient Position: Sitting; Cuff Location: Left Arm; Cuff Size: Standard Weight 192.3125 lb Height 0 in Head Circumference 0.00 cm :47 Pulse 64 /min Comments: Pattern: Regular Respiration Rate 20 /min Comments: Pattern: Unlabored BP Systolic 128 mm[Hg] Comments: Patient Position: Sitting; Cuff Location: Right Arm; Cuff Size: Standard BP Diastolic 80 mm[Hg] Comments: Patient Position: Sitting; Cuff Location: Right Arm; Cuff Size: Standard Weight 193.5 lb Height 0 in Head Circumference 0.00 cm :59 Pulse 80 /min Comments: Pattern: Regular Respiration Rate 20 /min Comments: Pattern: Unlabored BP Systolic 110 mm[Hg] Comments: Patient Position: Sitting; Cuff Location: Left Arm; Cuff Size: Standard BP Diastolic 72 mm[Hg] Comments: Patient Position: Sitting; Cuff Location: Left Arm; Cuff Size: Standard Weight 198.125 lb Height 0 in Head Circumference 0.00 cm :04 Pulse 72 /min Comments: Pattern: Regular Respiration Rate 16 /min Comments: Pattern: Unlabored BP Systolic 110 mm[Hg] Comments: Patient Position: Sitting; Cuff Location: Left Arm; Cuff Size: Standard BP Diastolic 70 mm[Hg] Comments: Patient Position: Sitting; Cuff Location: Left Arm; Cuff Size: Standard Weight 198 lb Height 0 in Head Circumference 0.00 cm :19 Temperature 98.6 f Comments: Method: Oral Pulse 70 /min Comments: Pattern: Regular Respiration Rate 16 /min Comments: Pattern: Unlabored BP Systolic 102 mm[Hg] Comments: Patient Position: Sitting; Cuff Location: Left Arm; Cuff Size: Standard BP Diastolic 66 mm[Hg] Comments: Patient Position: Sitting; Cuff Location: Left Arm; Cuff Size: Standard Weight 198 lb Height 0 in Head Circumference 0.00 cm :44 Temperature 99 f Comments: Method: Oral Pulse 68 /min Comments: Pattern: Regular Respiration Rate 16 /min Comments: Pattern: Unlabored BP Systolic 100 mm[Hg] Comments: Patient Position: Sitting; Cuff Location: Left Arm; Cuff Size: Standard BP Diastolic 70 mm[Hg] Comments: Patient Position: Sitting; Cuff Location: Left Arm; Cuff Size: Standard Weight 198 lb Height 0 in Head Circumference 0.00 cm Results Date Description Value Details [id number] CALCIFIDIOL ([id number]) VIT D 25 Comments: PATIENT WAS FASTINGPERFORMED BY: Ludei [facility] [id number] Vitamin D, 25-Hydroxy 98.8 ng/mL (Normal) Range: 30.0-100.0 Comments: Vitamin D deficiency has been defined by the [place] [employer] and an Endocrine Society practice guideline as alevel of serum 25-OH vitamin D less than 20 ng/mL (1,2).The Endocrine Society went on to further define vitamin Dinsufficiency as a level between 21 and 29 ng/mL (2).1. IOM ([place] [employer]). 2010. Dietary reference intakes for calcium and D. [place]: The National Academies Press.2. Paul MF, Gavino [place], Paola VALERIO, et al. Evaluation, treatment, and prevention of vitamin D deficiency: an Endocrine Society clinical practice guideline. JCEM. 2010; 96(7):1911-30. [id number] Vitamin B-12 (cyanocobalamin) Comments: PATIENT WAS FASTINGPERFORMED BY: [id number] Clark [facility] [id number] ([id number]) Vitamin B12 >2000 pg/mL (Abnormal) Range: 232-1245 [id number] CBC WITH MANUAL DIFF ([id number]) Comments: PATIENT WAS FASTINGPERFORMED BY: [id number] [facility] [id number] Immature Grans (Abs) 0.0 {x10E3/uL} (Normal) Range: 0.0-0.1 Immature Granulocytes 0 % (Normal) Baso (Absolute) 0.0 {x10E3/uL} (Normal) Range: 0.0-0.2 Eos (Absolute) 0.2 {x10E3/uL} (Normal) Range: 0.0-0.4 Monocytes(Absolute) 0.7 {x10E3/uL} (Normal) Range: 0.1-0.9 Lymphs (Absolute) 2.3 {x10E3/uL} (Normal) Range: 0.7-3.1 Neutrophils (Absolute) 5.7 {x10E3/uL} (Normal) Range: 1.4-7.0 Basos 0 % (Normal) Eos 3 % (Normal) Monocytes 7 % (Normal) Lymphs 26 % (Normal) Neutrophils 64 % (Normal) Platelets 240 {x10E3/uL} (Normal) Range: 150-379 RDW 13.6 % (Normal) Range: 12.3-15.4 MCHC 35.2 g/dL (Normal) Range: 31.5-35.7 MCH 33.6 pg (Abnormal) Range: 26.6-33.0 MCV 95 fL (Normal) Range: 79-97 Hematocrit 41.2 % (Normal) Range: 37.5-51.0 Hemoglobin 14.5 g/dL (Normal) Range: 13.0-17.7 RBC 4.32 {x10E6/uL} (Normal) Range: 4.14-5.80 WBC 9.0 {x10E3/uL} (Normal) Range: 3.4-10.8 [id number] Metabolic Panel, Comprehensive Comments: PATIENT WAS FASTINGPERFORMED BY: [id number] [facility] [id number] ([id number]) ALT (SGPT) 25 [iU]/L (Normal) Range: 0-44 AST (SGOT) 20 [iU]/L (Normal) Range: 0-40 Alkaline Phosphatase 67 [iU]/L (Normal) Range: 39-117 Bilirubin, Total 0.3 mg/dL (Normal) Range: 0.0-1.2 A/G Ratio 1.8 (Normal) Range: 1.2-2.2 Globulin, Total 2.4 g/dL (Normal) Range: 1.5-4.5 Albumin 4.3 g/dL (Normal) Range: 3.5-5.5 Protein, Total 6.7 g/dL (Normal) Range: 6.0-8.5 Calcium 9.4 mg/dL (Normal) Range: 8.7-10.2 Carbon Dioxide, Total 24 mmol/L (Normal) Range: 20-29 Chloride 102 mmol/L (Normal) Range: 96-106 Potassium 4.9 mmol/L (Normal) Range: 3.5-5.2 Sodium 142 mmol/L (Normal) Range: 134-144 BUN/Creatinine Ratio 13 (Normal) Range: 9-20 eGFR If Africn Am 71 mL/min/1.73 (Normal) eGFR If NonAfricn Am 62 mL/min/1.73 (Normal) Creatinine 1.31 mg/dL (Abnormal) Range: 0.76-1.27 BUN 17 mg/dL (Normal) Range: 6-24 Glucose 107 mg/dL (Abnormal) Range: 65-99 [id number] Lipid Panel ([id number]) Comments: PATIENT WAS FASTINGPERFORMED BY: [employer] [facility] [id number] LDL/HDL Ratio 2.8 {ratio} (Normal) Range: 0.0-3.6 Comments: LDL/HDL Ratio Men Women 1/2 Avg.Risk 1.0 1.5 Av g.Risk 3.6 3.2 2X Avg.Risk 6.2 5.0 3X Avg.Risk 8.0 6.1 LDL Cholesterol Calc 103 mg/dL (Abnormal) Range: 0-99 VLDL Cholesterol Jaspal 33 mg/dL (Normal) Range: 5-40 HDL Cholesterol 37 mg/dL (Abnormal) Triglycerides 165 mg/dL (Abnormal) Range: 0-149 Cholesterol, Total 173 mg/dL (Normal) Range: 100-199 [id number] MICROALBUMIN: CREATININE RATIO Comments: PATIENT WAS FASTINGPERFORMED BY: [employer] [facility] [id number] ([id number]) AND ([id number]) Alb/Creat Ratio 54.0 {mg/g_creat} (Abnormal) Range: 0.0-30.0 Albumin, Urine 64.1 ug/mL (Normal) Creatinine, Urine 118.7 mg/dL (Normal) [id number] URINALYSIS ([id number]) Comments: PATIENT WAS FASTINGPERFORMED BY: [employer] [facility] [id number] Microscopic Examination MICNIP (Normal) Comments: Microscopic not indicated and not performed. Nitrite, Urine Negative (Normal) Urobilinogen,Semi-Qn 0.2 mg/dL (Normal) Range: 0.2-1.0 Bilirubin Negative (Normal) Occult Blood Negative (Normal) Ketones Negative (Normal) Glucose Negative (Normal) Protein Trace (Normal) WBC Esterase Negative (Normal) Appearance Clear (Normal) Urine-Color Yellow (Normal) pH 7.0 (Normal) Range: 5.0-7.5 Specific Combes 1.018 (Normal) Range: 1.005-1.030 9-Rut-370581:32 CCP ANTIBODY (62145) Comments: PATIENT NOT FASTINGPERFORMED BY: AppLayer [facility] [id number] BY: [address] [id number] CCP Antibodies IgG/IgA 10 {units} (Normal) Range: 0-19 Comments: Negative <20 Weak positive 20 - 39 Moderate positive 40 - 59 Strong positive >59 8-Kfp-762641:32 URIC ACID BLOOD (91309) Comments: PATIENT NOT FASTINGPERFORMED BY: TISSUELAB Wtrwdq6182 [facility] [id number] BY: 5[address] [id number] Uric Acid, Serum 7.1 mg/dL (Normal) Range: 3.7-8.6 Comments: Therapeutic target for gout patients: <6.0 [id number]-Rfw-[id number]:32 Systemic Lupus Profile Comments: PATIENT NOT FASTINGPERFORMED BY: [place] [id number] [facility] [id number] BY: [address] [id number] (11643) Anti-DNA (DS) Ab Qn 4 {IU/mL} (Normal) Range: 0-9 Comments: Negative <5 Equivocal 5 - 9 Positive >9 Sjogren's Anti-SS-B <0.2 {AI} (Normal) Range: 0.0-0.9 Sjogren's Anti-SS-A <0.2 {AI} (Normal) Range: 0.0-0.9 Antichromatin Antibodies <0.2 {AI} (Normal) Range: 0.0-0.9 RA Latex Turbid. <10.0 {IU/mL} (Normal) Range: 0.0-13.9 Galloway Antibodies <0.2 {AI} (Normal) Range: 0.0-0.9 PORTABLE FEED MILL OPERATOR Antibodies <0.2 {AI} (Normal) Range: 0.0-0.9 2-Wmu-067079:32 TSH (82899) Comments: PATIENT NOT FASTINGPERFORMED BY: [facility]too[employer]me[address] [id number] BY: [address] [id number] TSH 2.590 {uIU/mL} (Normal) Range: 0.450-4.500 1-Nci-552852:32 CBC, Platelets & Auto Comments: PATIENT NOT FASTINGPERFORMED BY: [facility]me[address] [id number] BY: [address] [id number] Diff (77486) Immature Grans (Abs) 0.0 {x10E3/uL} (Normal) Range: 0.0-0.1 Immature Granulocytes 0 % (Normal) Baso (Absolute) 0.0 {x10E3/uL} (Normal) Range: 0.0-0.2 Eos (Absolute) 0.3 {x10E3/uL} (Normal) Range: 0.0-0.4 Monocytes(Absolute) 0.9 {x10E3/uL} (Normal) Range: 0.1-0.9 Lymphs (Absolute) 2.3 {x10E3/uL} (Normal) Range: 0.7-3.1 Neutrophils (Absolute) 3.5 {x10E3/uL} (Normal) Range: 1.4-7.0 Basos 0 % (Normal) Eos 4 % (Normal) Monocytes 13 % (Normal) Lymphs 33 % (Normal) Neutrophils 50 % (Normal) Platelets 236 {x10E3/uL} (Normal) Range: 150-379 RDW 13.9 % (Normal) Range: 12.3-15.4 MCHC 34.7 g/dL (Normal) Range: 31.5-35.7 MCH 32.6 pg (Normal) Range: 26.6-33.0 MCV 94 fL (Normal) Range: 79-97 Hematocrit 40.4 % (Normal) Range: 37.5-51.0 Hemoglobin 14.0 g/dL (Normal) Range: 13.0-17.7 RBC 4.29 {x10E6/uL} (Normal) Range: 4.14-5.80 WBC 7.0 {x10E3/uL} (Normal) Range: 3.4-10.8 3-Sma-120567:32 Metabolic Panel, Comments: PATIENT NOT FASTINGPERFORMED BY: CB [facility] Yzdygg9199 [facility] [id number] BY: BN [facility] Cejhnhyxit9466 [facility] [id number] Comprehensive (53412) ALT (SGPT) 41 [iU]/L (Normal) Range: 0-44 AST (SGOT) 27 [iU]/L (Normal) Range: 0-40 Alkaline Phosphatase, S 64 [iU]/L (Normal) Range: 39-117 Bilirubin, Total 0.2 mg/dL (Normal) Range: 0.0-1.2 A/G Ratio 1.6 (Normal) Range: 1.2-2.2 Globulin, Total 2.7 g/dL (Normal) Range: 1.5-4.5 Albumin, Serum 4.4 g/dL (Normal) Range: 3.5-5.5 Protein, Total, Serum 7.1 g/dL (Normal) Range: 6.0-8.5 Calcium, Serum 9.4 mg/dL (Normal) Range: 8.7-10.2 Carbon Dioxide, Total 27 mmol/L (Normal) Range: 18-29 Chloride, Serum 101 mmol/L (Normal) Range: 96-106 Potassium, Serum 4.5 mmol/L (Normal) Range: 3.5-5.2 Sodium, Serum 142 mmol/L (Normal) Range: 134-144 BUN/Creatinine Ratio 10 (Normal) Range: 9-20 eGFR If Africn Am 71 mL/min/1.73 (Normal) eGFR If NonAfricn Am 61 mL/min/1.73 (Normal) Creatinine, Serum 1.32 mg/dL (Abnormal) Range: 0.76-1.27 BUN 13 mg/dL (Normal) Range: 6-24 Glucose, Serum 97 mg/dL (Normal) Range: 65-99 0-Wqo-014062:42 Rapid Strep Test, Office (14168) Rapid Strep Test, Office Negative (Normal) :22 Basic Metabolic Profile (BMP) Comments: Test performed at:[facility] [address] [facility] [place] [address] GAP 8 (Normal) Range: 5-15 CO2 25.0 mmol/L (Normal) Range: 21.0-32.0 CL 103 mmol/L (Normal) Range: 98-107 K 3.6 mmol/L (Normal) Range: 3.5-5.1 NA 136 mmol/L (Normal) Range: 136-145 CA 8.6 mg/dL (Normal) Range: 8.5-10.1 BUN/CRE 17.4 {RATIO} (Normal) Range: 10-20 EST GFR - AA 87 mL/min (Normal) EST GFR 72 mL/min (Normal) CREAT,SERUM 1.15 mg/dL (Normal) Range: 0.70-1.30 Comments: Please note revised CREATININE reference range dlfcenhhc73/22/2015. BUN 20 mg/dL (Abnormal) Range: 7-18 GLU 103 mg/dL (Normal) Range: 70-110 :22 Urinalysis, Routine (Dipstick) Comments: How was Urine Obtained? CERTIFIED EXECUTIVE CHEF TO SPECIFYTest performed at:[facility] [address] [facility] [place] [address] LEUK ESTERASE Negative /ul (Normal) OCCULT BLOOD-UR 10 /ul (Abnormal) NITRITE UR Negative (Normal) UROBILI Normal mg/dL (Normal) PROT DIPSTX 30 mg/dL (Abnormal) pH UR 6.0 (Normal) Range: 5.0 - 8.0 SP.GR. DIPSTX 1.015 (Normal) Range: 1.002-1.030 KETONE UR Negative mg/dL (Normal) BILIRUBIN URINE Negative mg/dL (Normal) GLUCOSE, UR Normal mg/dL (Normal) CLARITY Clear (Normal) COLOR Yellow (Normal) 23-Cme-657801:44 Miscellaneous Lab Procedure Comments: Comments: [id number];KEPPRA;RED TOP;ROOM TEMPTest(s) Ordered: [id number];KEPPRA;RED TOP;ROOM TEMPTest performed at:[facility] [address] [place] [address] [facility] Comments: TEST RESULT UNITS REFERENCE INTERVALLevetiracetam (Keppra), S Levetiracetam, S 13.6 ug/mL 10.0 - 40.0 Please note reference interval change LAB (Normal) TESTING PERFORMED AT [facility]. ORIGINAL REPORT ON FILE IN LAB CONTAINS ADDITIONAL TEST SITE INFORMATION. TEST [id number]-Fji-[id number]:19 HgA1C , Office (26312) HgA1C , Office 6.0 % (Normal) Range: 4.6 - 7.1 :31 CBCEM Comments: This patient requested that [facility] send to you acopy of their Yearly Employee Health Risk Assessment.A copy of this report is also given to the patient so theycan follow up with your office if they choose. ALC 2.15 {X10_3/ul} (Normal) Range: 0.83-4.51 ANC 5.2 {X10_3/uL} (Normal) Range: 2.0-7.7 tB% 0.5 % (Normal) Range: 0-1 tE% 4.2 % (Normal) Range: 0-5 tM% 11.2 % (Abnormal) Range: 0-10 tL% 24.4 % (Normal) Range: 19-41 tN% 59.2 % (Normal) Range: 47-70 MPV 9.8 fL (Normal) Range: 6.2-12.0 PLT 261 K/mm3 (Normal) Range: 150-450 RDWSD 43.9 fL (Normal) Range: 35.1-43.9 RDWCV 13.2 % (Normal) Range: 11.6-14.6 MCHC 34.8 {g/gl} (Normal) Range: 32-36 MCH 32.5 pg (Abnormal) Range: 27.0-32.0 MCV 93.5 fL (Normal) Range: 80-94 HCT 42.0 % (Normal) Range: 40-54 HGB 14.6 g/dL (Normal) Range: 13.0-16.5 RBC 4.49 {M/mm3} (Abnormal) Range: 4.6-6.2 WBC 8.8 K/mm3 (Normal) Range: 4.4-11.0 :31 EMP Comments: This patient requested that [facility] send to you acopy of their Yearly Employee Health Risk Assessment.A copy of this report is also given to the patient so theycan follow up with your office if they choose. LDH 227 U/L (Normal) Range: 84-246 VLDL 59 mg/dL (Abnormal) Range: 5-40 LDL 95 mg/dL (Normal) Range: 0-130 HDLEMP 28 mg/dL (Abnormal) Comments: Reference RangeHDL <40 mg/dL Low HDL CholesterolHDL >or= 60 mg/dL High HDL Cholesterol HDL 28 mg/dL (Abnormal) Comments: Reference RangeHDL <40 mg/dL Low HDL CholesterolHDL >or= 60 mg/dL High HDL Cholesterol GAP 7 (Normal) Range: 5-15 CO2 28.0 mmol/L (Normal) Range: 21.0-32.0 CL 103 mmol/L (Normal) Range: 98-107 K 4.0 mmol/L (Normal) Range: 3.5-5.1 NA 138 mmol/L (Normal) Range: 136-145 TRIG 294 mg/dL (Abnormal) Range: 0-199 Comments: Serum Triglycerides Reference IntervalNormal <150 mg/dLBorderline high 150 - 199 mg/dLHigh 200 - 499 mg/ dLVery High > or = 500 mg/dL CHOL 182 mg/dL (Normal) Comments: <200 mg/dL Tztepjvmm596-618 mg/dL Borderline>240 mg/dL High Risk BID 0.08 mg/dL (Normal) Range: 0.00-0.30 BIT 0.30 mg/dL (Normal) Range: 0.00-1.00 ALT 71 U/L (Normal) Range: 12-78 ALK 84 U/L (Normal) Range: 45-117 AST 33 U/L (Normal) Range: 15-37 PHOS 2.6 mg/dL (Normal) Range: 2.5-4.9 CA 8.8 mg/dL (Normal) Range: 8.5-10.1 AG 1.1 {RATIO} (Normal) Range: 0.9-2.4 GLOB 3.2 g/dL (Normal) Range: 2.7-4.2 ALB 3.6 g/dL (Normal) Range: 3.4-5.0 TPROT 6.8 g/dL (Normal) Range: 6.4-8.2 URIC 7.4 mg/dL (Abnormal) Range: 3.5-7.2 BC 10.8 {RATIO} (Normal) Range: 10-20 ECRCL 68.74 ml/min (Normal) GFRAA 75 mL/min (Normal) GFR 62 mL/min (Normal) CREAT 1.3 mg/dL (Normal) Range: 0.8-1.3 BUN 14 mg/dL (Normal) Range: 7-18 GLU 121 mg/dL (Abnormal) Range: 70-110 Comments: Fasting Glucose result from 110 to <126 mg/dLsuggests IMPAIRED HOMEOSTASIS per A.D.A. criteria. :31 UAEM Comments: This patient requested that [facility] send to you acopy of their Yearly Employee Health Risk Assessment.A copy of this report is also given to the patient so theycan follow up with your office if they choose. GLADYS Negative /ul (Normal) UOB 50 /ul (Abnormal) MARLINE Negative (Normal) UROBU Normal mg/dL (Normal) uPROTU 15 mg/dL (Abnormal) JUAN 6.0 (Normal) Range: 5.0 - 8.0 SGU 1.020 (Normal) Range: 1.002-1.030 KETU Negative mg/dL (Normal) BILIU Negative mg/dL (Normal) GLUR Normal mg/dL (Normal) UCLAR Clear (Normal) UCOL Yellow (Normal) :18 CMP GAP 6 (Normal) Range: 5-15 CO2 26.0 mmol/L (Normal) Range: 21.0-32.0 CL 108 mmol/L (Abnormal) Range: 98-107 K 4.2 mmol/L (Normal) Range: 3.5-5.1 NA 140 mmol/L (Normal) Range: 136-145 BIT 0.20 mg/dL (Normal) Range: 0.00-1.00 ALT 40 U/L (Normal) Range: 12-78 ALK 77 U/L (Normal) Range: 50-136 AST 25 U/L (Normal) Range: 15-37 CA 9.1 mg/dL (Normal) Range: 8.5-10.1 AG 1.1 {RATIO} (Normal) Range: 0.9-2.4 GLOB 3.3 g/dL (Normal) Range: 2.7-4.2 ALB 3.6 g/dL (Normal) Range: 3.4-5.0 TPROT 6.9 g/dL (Normal) Range: 6.4-8.2 BC 12.5 {RATIO} (Normal) Range: 10-20 GFRAA 82 mL/min (Normal) GFR 68 mL/min (Normal) CREAT 1.2 mg/dL (Normal) Range: 0.8-1.3 BUN 15 mg/dL (Normal) Range: 7-18 GLU 117 mg/dL (Abnormal) Range: 70-110 Comments: Fasting Glucose result from 110 to <126 mg/dLsuggests IMPAIRED HOMEOSTASIS per A.D.A. criteria. :09 Blood Glucose , Office (09097) Blood Glucose , Office 151 (Normal) 94-Rqe-748089:09 HgA1C , Office (45321) HgA1C , Office 5.8 % (Normal) Range: 4.6 - 7.1 :00 LOWER EXT/NO JT/W/O Radiology Report See Note Comments: PROCEDURE: MRI LEFT LOWER EXTREMITY UNENHANCED. REASON FOR EXAM: Male, 47 years old. Injury on 08/12/2012, pain andswelling. TECHNIQUE: The exam was performed on a 1.5 Destinee scanner in coronal,sagit (Normal) angelica and axial planes utilizing pulse sequences which produce imageswith T1 and variable T2 weighting. COMPARISON: None. FINDINGS:Distally involving the posterior aspe cts of the extremity, there issubcutaneous edema and thickening is demonstrated with associated smalledema fluid anterior to the visualized Achilles' tendon. Soft tissues imaged on this exam are otherwi se symmetric in appearanceandnormal in signal intensity. The tissue fat planes are well maintained.There is no bone marrow signal abnormality. The neuro vascular bundlesareunremarkable in appearance._ IMPRESSION:1. Mid calf region, cutaneous and subcutaneous mild edema and swellingisnoted with a small joint effusion anterior and medial to the visualizedAchilles' te ndon.2. No other soft tissue or bone marrow abnormality is identified. Signed:Pia Schaefer M.D.September 02, 2012 at 9:37:09 AM [phone] Signed GK/JOHN If you are the referring physic newton and would like to consult with theradiologist who provided this interpretation, please contact Pia Bassett M.D. at . If this radiologist is unavailable, youwillbe directed to banner radiologist to assist. If you are a patient with a question regarding this report, pleasecontactyour referring physician directly. Professional Interpretation Provided By: [employer], Phone , These documents contain legally protected and confidential healthinformation intended only for the use of the individual or entity namedabove. If you are not the intended recipien t, you are hereby notifiedthatany disclosure, copying, distribution, or other use of these documents isstrictly prohibited. If you have received this information in error,pleasenotify the sender immedia tely and arrange for the return or destructionofthese documents. Dictated on 09/02/12936 by Stacey Schaefer MDTranscribed on 09/02/12938 by ITS IMPORTSign by Stacey Schaefer MD on 09/02/12 0940 Sign by: Silvano ESCALANTE,[facility] :40 CBCEM Comments: This patient requested that [facility] [employer] send to you acopy of their Yearly Employee Health Risk Assessment.A copy of this report is also given to the patient so theycan follow up with your office if they choose. MPV 8.0 fL (Normal) Range: 6.5-12.0 PLT 237 K/mm3 (Normal) Range: 150-450 RDW 14.2 % (Normal) Range: 11.6-14.6 MCHC 34.7 g/dL (Normal) Range: 32-36 MCH 33.8 pg (Abnormal) Range: 27.0-32.0 MCV 97.4 fL (Abnormal) Range: 80-94 HCT 42.0 % (Normal) Range: 40-54 HGB 14.5 g.dL (Normal) Range: 13.0-16.5 RBC 4.31 {M/mm3} (Abnormal) Range: 4.6-6.2 WBC 9.1 K/mm3 (Normal) Range: 4.4-11.0 :40 EMP Comments: This patient requested that [facility] send to you acopy of their Yearly Employee Health Risk Assessment.A copy of this report is also given to the patient so theycan follow up with your office if they choose. LDH 193 U/L (Normal) Range: 84-246 VLDL 49 mg/dL (Abnormal) Range: 5-40 LDL 132 mg/dL (Abnormal) Range: 0-130 HDL 32 mg/dL (Abnormal) Comments: Reference Range HDL <40 mg/dL Low HDL Cholesterol HDL >or= 60 mg/dL High HDL Cholesterol GAP 9 (Normal) Range: 5-15 CO2 26.0 mmol/L (Normal) Range: 21.0-32.0 CL 102 mmol/L (Normal) Range: 98-107 K 3.9 mmol/L (Normal) Range: 3.5-5.1 NA 137 mmol/L (Normal) Range: 136-145 TRIG 244 mg/dL (Abnormal) Comments: Serum Triglycerides Reference Interval Normal <150 mg/dL Borderline high 150 - 199 mg/dL High 200 - 499 mg/dL Very High > or = 500 mg/dL CHOL 213 mg/dL (Abnormal) Comments: <200 mg/dL Desirable 200-240 mg/dL Borderline >240 mg/dL High Risk BID 0.06 mg/dL (Normal) Range: 0.00-0.30 BIT 0.30 mg/dL (Normal) Range: 0.00-1.00 ALT 42 U/L (Normal) Range: 12-78 ALK 71 U/L (Normal) Range: 50-136 AST 27 U/L (Normal) Range: 15-37 PHOS 3.1 mg/dL (Normal) Range: 2.5-4.9 CA 9.3 mg/dL (Normal) Range: 8.5-10.1 AG 1.1 {RATIO} (Normal) Range: 0.9-2.4 GLOB 3.4 g/dL (Normal) Range: 2.7-4.2 ALB 3.7 g/dL (Normal) Range: 3.4-5.0 TPROT 7.1 g/dL (Normal) Range: 6.4-8.2 URIC 5.0 mg/dL (Normal) Range: 3.5-7.2 BC 14.2 {RATIO} (Normal) Range: 10-20 GFRAA 84 mL/min (Normal) GFR 69 mL/min (Normal) CREAT 1.2 mg/dL (Normal) Range: 0.8-1.3 BUN 17 mg/dL (Normal) Range: 7-18 GLU 114 mg/dL (Abnormal) Range: 70-110 Comments: Fasting Glucose result from 110 to <126 mg/dL suggests IMPAIRED HOMEOSTASIS per A.D.A. criteria. 55-Vcn-52603:40 UAEM Comments: This patient requested that [facility] send to you acopy of their Yearly Employee Health Risk Assessment.A copy of this report is also given to the patient so theycan follow up with your office if they choose. GLADYS NEGATIVE (Normal) UOB TRACE-INTACT (Abnormal) MARLINE NEGATIVE (Normal) UROBU 0.2 EU/dl (Normal) Range: 0.2 - 1.0 uPROTU NEGATIVE (Normal) JUAN 6.0 (Normal) Range: 5.0-8.0 SGU 1.010 (Normal) Range: 1.002-1.030 KETU NEGATIVE mg/dL (Normal) BILIU NEGATIVE (Normal) GLUR NEGATIVE (Normal) UCLAR CLEAR (Normal) UCOL YELLOW (Normal) :53 VITAMIN B12 1102 pg/mL (Normal) Range: 254-1320 Comments: There is a low frequency possibility that high titers ofintrinsic blocking antibodies may not be completely inactivated during the reaction pretreatment stepof this testing method. If test results are i n conflictwith the clinical diagnosis, patient should be testedfor the presence of intrinsic factor blocking antibodies. :04 MYOCARD PERF STRESS/REST MULT Radiology Report See Note (Normal) Comments: EXERCISE MYOCARDIAL PERFUSION SCAN HISTORYA 45-year-old man with a history of chest pain. ABIOCUQRY68.0 mCi of Sestamibi was injected at rest. The patient then exercisedaccording to the regu lar Toby pr otocol for duration of 12 minutesattaining maximum heart rate of 157 beats per minute, 90% of the maximumpredicted heart rate, workload of 13.4 METS. At peak exercise 42.8mCi ofSestamibi was then inject ed. Stress images were then obtained. Stressand rest images were reconstructed and compared in the short axis,vertical long and horizontal long axes. Gated images were also obtained. RESULTSReview of the stress images demonstrate normal uptake of tracer noted inall areas of the myocardium. The resting images similarly demonstratenormal uptake of tracer in all areas of the myocardium. No reversibili tyis noted to suggest ischemia. The gated ejection fraction is 61%. CONCLUSION1. Exercise myocardial profusion scan with no evidence for ischemia.2. Preserved ejection fraction. Dictated on 12/07/10 0525 by Iris ESCALANTE,SonnyrilTranscribed on 12/08/10 0504 by Jw NOBLE by Iris ESCALANTE,Henry on 12/11/10 1306 Sign by: Sreedhar Simmons MD :04 RADIOLOGY REPORT Radiology Report See Note (Normal) Comments: EXERCISE MYOCARDIAL PERFUSION SCAN HISTORYA 45-year-old man with a history of chest pain. HCKUVJXLD95.0 mCi of Sestamibi was injected at rest. The patient then exercisedaccording to the regu lar Toby pr otocol for duration of 12 minutesattaining maximum heart rate of 157 beats per minute, 90% of the maximumpredicted heart rate, workload of 13.4 METS. At peak exercise 42.8mCi ofSestamibi was then inject ed. Stress images were then obtained. Stressand rest images were reconstructed and compared in the short axis,vertical long and horizontal long axes. Gated images were also obtained. RESULTSReview of the stress images demonstrate normal uptake of tracer noted inall areas of the myocardium. The resting images similarly demonstratenormal uptake of tracer in all areas of the myocardium. No reversibili tyis noted to suggest ischemia. The gated ejection fraction is 61%. CONCLUSION1. Exercise myocardial profusion scan with no evidence for ischemia.2. Preserved ejection fraction. Dictated on 12/07/10 0525 by Kieran Simmons MDlTranscribed on 12/08/10 0504 by Jw NOBLE by Sreedhar Simmons MD on 12/08/10 0803 Sign by: Sreedhar Simmons MD 14-Ekx-572116:01 SHOULDER,MIN 2 VIEWS Radiology Report See Note (Normal) Comments: PROCEDURE: X-RAY - RIGHT SHOULDER REASON FOR EXAM: Male, 45 years old. The patient presented withshoulderpain following a fall. TECHNIQUE: Four views of the shoulder. COMPARISON: None. FINDINGS :Normal glenohumeral articulation. There is increased distance betweenthedistal portion of the right clavicle and acromion. This may representprior surgery. Normal acromion. There is evidence of a non displaced fracture of the greater tuberosity ofthe proximal humerus. There is no demonstrated soft tissue abnormality. Normal visualized pulmonary apex. IMPRESSION:Nondisplaced fracture of the greater t uberosity. Dictated on 12/07/10 1215 by Dennis Mcclure MDranscribed on 12/07/10 1303 by ITS IMPORTSign by Sai Mcclure MD on 12/07/10 1304 Sign by: Sai Mcclure MD 60-Syp-920057:14 LAWRENCE DIR SEMI-QL LAWRENCE DIRECT 6 AU/mL (Normal) :14 C-REACTIVE PROT 3.41 mg/L (Abnormal) Range: 0.0-3.0 Comments: C-Reactive Protein (CRP) provides useful information for thediagnosis, therapy and monitoring of inflammatory processesand associated diseases. For the evaluation of Relative Riskfor Cardiovascular Dise ase, a High Sensitivity CRP (HSCRP)should be ordered. :14 CBCD ABSOLUTE NEUT 5.1 3/uL (Normal) Range: 2.0-7.7 BASO% 0.2 % (Normal) Range: 0-1 EO% 5.5 % (Abnormal) Range: 0-5 MONO% 9.6 % (Normal) Range: 0-10 LY% 22.8 % (Normal) Range: 19-41 NEUT% 61.9 % (Normal) Range: 47-70 MPV 8.0 fL (Normal) Range: 6.5-12.0 PLT 242 K/mm3 (Normal) Range: 150-450 RDW 14.5 % (Normal) Range: 11.6-14.6 MCHC 34.7 g/dL (Normal) Range: 32-36 MCH 33.5 pg (Abnormal) Range: 27.0-32.0 MCV 96.7 fL (Abnormal) Range: 80-94 HCT 41.1 % (Normal) Range: 40-54 HGB 14.3 g/dL (Normal) Range: 14.0-18.0 RBC 4.25 {M/mm3} (Abnormal) Range: 4.6-6.2 WBC 8.2 K/mm3 (Normal) Range: 4.4-11.0 :14 COMP METABOLIC GAP 6 (Normal) Range: 5-15 CO2 28.0 mmol/L (Normal) Range: 21.0-32.0 CL 104 mmol/L (Normal) Range: 98-107 K 4.3 mmol/L (Normal) Range: 3.5-5.1 NA 138 mmol/L (Normal) Range: 136-145 T BILI 0.30 mg/dL (Normal) Range: 0.00-1.00 ALT 33 U/L (Normal) Range: 12-78 ALK P 67 U/L (Normal) Range: 50-136 AST 13 U/L (Abnormal) Range: 15-37 CA 8.7 mg/dL (Normal) Range: 8.5-10.1 A/G 1.3 {RATIO} (Normal) Range: 0.9-2.4 GLOB 3.0 g/dL (Normal) Range: 2.7-4.2 ALB 3.8 g/dL (Normal) Range: 3.4-5.0 T PROT 6.8 g/dL (Normal) Range: 6.4-8.2 BUN/CRE 12.3 {RATIO} (Normal) Range: 10-20 EST GFR - AA 76 mL/min (Normal) CREAT,SERUM 1.3 mg/dL (Normal) Range: 0.8-1.3 EST GFR 63 mL/min (Normal) BUN 16 mg/dL (Normal) Range: 7-18 GLU 102 mg/dL (Normal) Range: 70-110 :14 ESR SED RATE 1 mm/h (Normal) Range: 0-15 :14 FOLATES 7.80 ng/mL (Normal) Range: 3.1-17.5 :14 RHEUMATOID FAC < 10.0 {IU/mL} (Normal) :14 TSH 1.26 {uIU/mL} (Normal) Range: 0.358-3.74 :14 VIT D,25 44291 14.9 ng/mL (Abnormal) Range: 32.0-100.0 Comments: Effective January 18, 2011 Vitamin D, 25-Hydroxy reference intervals will be changing to 30-100. .Recent studies consider the lower li patrick of 32.0 ng/mL to be athreshold for optimal health.Aristeo ALONZO. J Nutr. 2004;135(2):317-22.Performed at: [facility] [address] [id number] Director: Kinsey Schulz MD, Phone: [phone] [id number]-[id number]:31 KIDNEY Radiology Report See Note (Normal) Comments: PROCEDURE: RENAL ULTRASOUND - COMPLETE REASON FOR EXAM: Male, 45 years old. The patient has a history ofrightrenal cyst. TECHNIQUE: Ultrasound evaluation of the bilateral kidneys was performedwit h real-time ultrasonography and static grayscale imaging. COMPARISON: Comparison is made with prior study dated March. FINDINGS: RIGHT KIDNEY: Normal location of the right kidney which is normal insize.The right kidney measures 10.4 cm. There is a normal cortex of the rightkidney. There is a 3.3-cm by 2.6 on as by 3 cm complex mass in thelateralaspect of the midportion of the right kid joanne. Linear echoes are seenwithin it. This corresponds to the CT findings of calcification within acomplex solid and cystic lesion. This is unchanged from priorexaminationand most likely represents a complicated cyst. There are no right renalcalculi. There is no right hydronephrosis. DISTAL RIGHT URETER: There is non-visualization of the distal rightureter. There is no demonstrated right uretero vesical junction calculus.There is a visualized right ureteral jet. LEFT KIDNEY: Normal location of the left kidney which is normal in size.The left kidney measures 10.1 cm. There is a normal cortex o f the leftkidney. There is no left renal mass or cyst. There are no left renalcalculi. There is no left hydronephrosis. DISTAL LEFT URETER: There is non-visualization of the distal leftureter.There is no demonstrated left ureterovesical junction calculus. There isavisualized left ureteral jet. IMPRESSION:Complex solid and cystic mass in the right kidney with focal areas ofpossible calcifications . This is essentially unchanged from priorexamination. This may represent a complex cyst. Dictated on 10/13/10 1242 by Dennis Mcclure MDranscribed on 10/13/10 1444 by ITS IMPORTSign by Sai Campos MD on 10/13/10 1445 Sign by: Sai Mcclure MD 02-Nxn-42820:00 ABDOMEN W/WO IV CONTRAST Radiology Report See Note (Normal) Comments: PROCEDURE: CT ABDOMEN WITH AND WITHOUT CONTRAST REASON FOR EXAM: Male, 45 years old. Abdominal pain. TECHNIQUE: Transaxial images were obtained from the dome of thediaphragmto the iliac crests wit h oral contrast. 100ML ml of Isovue 300 contrastwas administered. COMPARISON: April 18, 2007. FINDINGS:The visualized lung bases are unremarkable. Normal unenhanced and enhanced liver. Normal gal lbladder andextrahepaticbiliary system. Normal unenhanced and enhanced spleen. Normal pancreas. Normal bilateral adrenal glands. Normal size of the right kidney. A 3.4-cm partially calcified cyst iss eenwithin the anterior aspect of the mid right kidney. A 1.0-cm area ofill- defined cortical calcification is seen within the lateral aspect ofthemid right kidney (image 34). There are no right renal ca lculi. There isnoright hydronephrosis. Normal visualized right ureter. Normal size of the left kidney. There is no left renal mass. There arenoleft renal calculi. There is no left hydronephrosis. Normal visualizedleft ureter. Normal visualized stomach. Normal small intestine. Normal colon. Theappendix is visualized and appears normal. There is no demonstrated peritoneal fluid. Normal abdomina l aorta. Normal inferior vena cava. Normalretroperitoneum. Normal abdominal wall. Normal osseous structures. IMPRESSION:3.4-cm partially calcified right renal cyst. Correlation with renalultrasound is recommended. 1.0-cm area of ill-defined renal cortical calcification within the rightkidney. Dictated on 10/09/10 010 by RANDA LLOYD MDranscribed on 10/09/10206 by ITS IMPORTSign by JENNIFER PAUL MD on 10/09/10207 Sign by: JENNIFER LLOYD MD [id number] CBC MPV 7.7 fL (Normal) Range: 6.5-12.0 PLT 263 K/mm3 (Normal) Range: 150-450 RDW 13.8 % (Normal) Range: 11.6-14.6 MCHC 33.8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 Request Comments: 6 MO TSH ([id number])Indication: Other testicular dysfunction On: :49 Request TESTOSTERONE TOTAL ([id number])Indication: Other testicular dysfunction On: 8-Hkc-295615:49 Request Comments: 3 POOLED SPECIMENS 20 MIN APART LIPID PANEL ([id number])Indication: Hypercholesteremia On: 0-Zrv-064938:42 Request Comments: DO IN 6 MO Planned Encounters Medical; General Medical - On: 15-Feb-2018 8:30 [facility] Kathryn POND, Diane Owens DO Planned Procedures B 12 Injection, 1000 On: 26-Oct-2017 Intent mcg (J3420)By: Visit, Comments: lot:[id number]:rte:imdose:left deltoid 1mlgiven by:ISMAEL Mix B 12 Injection, 1000 On: 12-Aug-2017 Intent mcg (J3420)By: Nilesh, Comments: Vitamin b12 1000mcg injection lot:[id number]:11/2018L DELT IMpt tolerated well ISMAEL FELDMAN B 12 Injection, 1000 On: 25-Apr-2017 Intent mcg (J3420)By: Lázaro Comments: vitamin b12 1000mcg injectionlot: [id number]: 06/2018L DELT IMpt tolerated wellAD Milana GUEVARA LPN Ultrasound - RenalBy: On: 09-Mar-2017 Intent Kelsy Villanueva CNP Radiology - Knee - On: 01-Mar-2017 Intent RightBy: Kay KEITH, Beatriz Radiology - Knee - On: 01-Mar-2017 Intent LeftBy: Kay KEITH, Beatriz B 12 Injection, 1000 On: 01-Mar-2017 Intent mcg (J3420)By: Kay Comments: [id number], mlMLong, PLUG OVERWRAP MACHINE TENDER SUPERVISOR FILTRATION, Beatriz B 12 Injection, 1000 On: 11-Feb-2017 Intent mcg (J3420)By: Kathryn Comments: Lot:[id number]:07/16Dose:1mlRoute:IMSite:renee armGiven By:MIKE signed DO, Diane Kathryn DO, Diane Nerve ConductionBy: On: 13-Oct-2016 Intent Kathryn DO, Diane Kathryn DO, Diane EMGBy: Kathryn DO, On: 13-Oct-2016 Intent Diane Kathryn DO, Diane ATTENDED ELECTRICAL On: 11-Oct-2016 Intent STIMULATION ([id number])By: Kathryn DO, Diane Kathryn DO, Diane B 12 Injection, 1000 On: 08-Oct-2016 Intent mcg (J3420)By: Kathryn Comments: 1 ml given rt arm lot [id number] exp 04/18 DO, Diane Kathryn DO, Diane Spirometry On: 08-Oct-2016 Intent ([id number])By: Kathryn DO, Diane Kathryn DO, Diane ELECTROCARDIOGRAM, On: 08-Oct-2016 Intent COMPLETE (ECG) Comments: nsr no acute chg (28435)By: Kathryn DO, Diane Kathryn DO, Diane B 12 Injection, 1000 On: 01-Apr-2016 Intent mcg (J3420)By: Kathryn Comments: B12lot:[id number]:ite:lt deltroute:IMdose:1mlD.PATI Watters DO, Diane Kathryn DO, Diane B 12 Injection, 1000 On: 19-Dec-2015 Intent mcg (J3420)By: Kathryn Comments: Lot:[id number]:06/15Dose:1mlRoute:IMSite:l armGiven By:JKMVIS signed DO, Diane Kathryn DO, Diane B 12 Injection, 1000 On: 04-Jul-2015 Intent mcg (J3420)By: Kathryn Comments: Lot:[id number]:07/15Dose:1mlRoute:IMSite:l armGiven By:JKMVIS signed DO, Diane Kathryn DO, Diane B 12 Injection, 1000 On: 22-May-2015 Intent mcg (J3420)By: Kathryn Comments: Lot:[id number]:07/15Dose:1mlRoute:IMSite:l arm Given By:JKMVIS signed DO, Diane Kathryn DO, Diane B 12 Injection, 1000 On: 05-Feb-2015 Intent mcg (J3420)By: Kathryn Comments: lot: [id number]: 06/14site/route: L del/IMamt: 1mLVIS signed when applicableChelsea, CHAIN BUILDER DO, Diane Kathryn DO, Diane B 12 Injection, 1000 On: 17-Jan-2015 Intent mcg (J3420)By: Kathryn Comments: given see flow sheet ML DO, Diane Kathryn DO, Diane B 12 Injection, 1000 On: 30-Oct-2014 Intent mcg (J3420)By: Kathryn Comments: Lot:[id number]:05/14Dose:1mlRoute:IMSite:l armGiven By:JKMVIS signed DO, Diane Kathryn DO, Diane B 12 Injection, 1000 On: 29-Aug-2014 Intent mcg (J3420)By: Kathryn DO, Diane Kathryn DO, Diane B 12 Injection, 1000 On: 20-Jun-2014 Intent mcg (J3420)By: Visit, Comments: givenMeganSee Flowsheet Nurse B 12 Injection, 1000 On: 27-May-2014 Intent mcg (J3420)By: Kathryn Comments: Lot:[id number]:05/13Dose:1mlRoute:IMSite:l armGiven By:JKMVIS signed DO, Diane Kathryn DO, Diane B 12 Injection, 1000 On: 26-Apr-2014 Intent mcg (J3420)By: Kathryn Comments: Lot:[id number]:12/13Dose:1mlRoute:IMSite:l armGiven By:MIKE signed DO, Diane Kathryn DO, Diane B 12 Injection, 1000 On: 26-Feb-2014 Intent mcg (J3420)By: Kay KEITH, Beatriz B 12 Injection, 1000 On: 07-Sep-2013 Intent mcg (J3420)By: Kathryn Comments: Lot:[id number]:12/2013Dose:1mlRoute:IMSite:l armGiven By:MIKE signed DO, Diane Kathryn DO, Diane B 12 Injection, 1000 On: 27-Jul-2013 Intent mcg (J3420)By: Visit, Comments: 1 ml given im rt arm lot [id number] exp 04/15 Nurse Echo CompleteBy: On: 18-Apr-2013 Intent Kay KEITH Kelsy Pereyra Nuclear Stress On: 18-Apr-2013 Intent Test/Stress SPECT/AdenosineBy: Roselynjanny KEITH Kelsy Pereyra Carotid DopplerBy: On: 18-Apr-2013 Intent Lauriegeorgejanny KEITH Kelsy Pereyra Holter Moniter On: 18-Apr-2013 Intent ([id number])By: Lauriegeorgejanny KEITH, Beatriz B 12 Injection, 1000 On: 16-Apr-2013 Intent mcg (J3420)By: Kathryn Comments: lot: [id number]: 01/12site/route: R deltoid/IMamt: 1mLVIS signed when applicableChelsea, CHAIN BUILDER DO, Diane Kathryn DO, Diane Radiology - Foot - On: 16-Jan-2013 Intent RightBy: Kay KEITH, Comments: call wet read to Juan at [facility] Beatriz B 12 Injection, 1000 On: 05-Jan-2013 Intent mcg (J3420)By: Comments: Lot: [id number]: 10/12Amt: 1000mcg/1mlRoute: IMSite: L deltoidGiven by: ISMAEL Ang LPN, Jill B 12 Injection, 1000 On: 16-Oct-2012 Intent mcg (J3420)By: Kathryn Comments: Lot:[id number]:09/2013Dose:1mlRoute:IMSite:LarmGiven By:MIKE signed DO, Diane Kathryn DO, Diane PHYSICAL THERAPY On: 04-Sep-2012 Intent EVALUATION ([id number])By: Kay KEITH Beatriz EMGBy: Kay KEITH, On: 04-Sep-2012 Intent Kelsy Pereyra Nerve ConductionBy: On: 04-Sep-2012 Intent Kay KEITH Kelsy Pereyra MRI - Calf - LeftBy: On: 29-Aug-2012 Intent Justa Calloway LPN Venous Doppler - On: 28-Aug-2012 Intent LeftBy: Kay KEITH, Comments: STAT r/o DVT call wet read to Juan at [facility] today, Ok to tell patient if positvive for DVT return to offic e Kelsy Pereyra B 12 Injection, 1000 On: 28-Jul-2012 Intent mcg (J3420)By: Comments: lot: [id number]: 08/11site/route: R deltoid/IMamt:1 mLVIS signed when applicableJHONY Hancock Chelsea B 12 Injection, 1000 On: 21-Jun-2012 Intent mcg (J3420)By: Diane Peralta DO, DO, Kathleen B 12 Injection, 1000 On: 10-May-2012 Intent mcg (J3420)By: Minor, Comments: Lot:[id number]:02/10Dose:1mlRoute:IMSite:l armGiven By:MIKE signed Reena B 12 Injection, 1000 On: 10-May-2012 Intent mcg (J3420)By: Minor, Comments: Lot:[id number]:02/10Dose:1mlRoute:IMSite:l arm Given By:MIKE signed Reena B 12 Injection, 1000 On: 11-Apr-2012 Intent mcg (J3420)By: Comments: Lot #[id number]-46/14Site-left deltoidDose-1 mlgiven by: ISMAEL Murrell LPN, Connie B 12 Injection, 1000 On: 13-Jan-2012 Intent mcg (J3420)By: Comments: Lot #[id number]-3/14Site-left deltoidDose-1 mlgiven by: ISMAEL Murrell LPN, Connie Eprescribed On: 27-Dec-2011 Intent prescriptions ([id number])By: Justa Calloway ISMAEL B 12 Injection, 1000 On: 24-Nov-2011 Intent mcg (J3420)By: Comments: lot [id number] exp 13 given 1 ml im rt arm Elli Justa GUEVARA B 12 Injection, 1000 On: 25-Aug-2011 Intent mcg (J3420)By: Comments: Lot #[id number]-01/10Site-left deltoidDose-1 mlgiven by: ISMAEL Murrell LPN, Connie B 12 Injection, 1000 On: 19-Jul-2011 Intent mcg (J3420)By: Ankur Comments: Lot #[id number]-11.13Site-RightDose 1mlgiven by:Jagruti Chand LPN B 12 Injection, 1000 On: 08-Jun-2011 Intent mcg (J3420)By: Devon, Comments: Lot:[id number]:01/10Amt:1mlRoute:IMSite:left deltGiven By: ISMAEL Arroyo Little INJECTION, VITAMIN On: 07-May-2011 Intent B-12 CYANOCOBALAMIN, Comments: Lot:161Exp:01/10Amt:1mlRoute:IMSite:right deltGiven By: ISMAEL Arroyo UP TO 1000 MCG (Special Coverage Instructions Apply. See CIM: 45-4 and MCM: 9) (J3420)By: Kelsy Villanueva CNP THER/PROPH/DIAG INJ, On: 07-May-2011 Intent SC/IM ([id number])By: Kelsy Villanueva CNP B 12 Injection, 1000 On: 06-Apr-2011 Intent mcg (J3420)By: Comments: Lot #[id number]-12.13Site-L arm, IMDose 1mlgiven by:Wojciech Sarabia B 12 Injection, 1000 On: 05-Mar-2011 Intent mcg (J3420)By: Devon, Comments: Lot:[id number]:09/09Amt:1mlRoute:IMSite:right deltGiven By: ISMAEL Arroyo Little B 12 Injection, 1000 On: 17-Dec-2010 Intent mcg (J3420)By: Diane Peralta DO, DO, Kathleen B 12 Injection, 1000 On: 07-Dec-2010 Intent mcg (J3420)By: Devon, Comments: Lot:[id number]:04/12Amt:1mlRoute:IMSite:left deltGiven By: ISMAEL Arroyo Radiology - Shoulder On: 07-Dec-2010 Intent - RightBy: Brianna ESCALANTE, Ewa M B 12 Injection, 1000 On: 01-Dec-2010 Intent mcg (J3420)By: Ankur Comments: Lot #[id number]-2.13Site-Rarm, IMDose 1mlgiven by:Jagruti Chand LPN Nuclear Stress On: 24-Nov-2010 Intent Test/Stress SPECT/TreadmillBy: Kelsy Villanueva CNP Echo CompleteBy: On: 24-Nov-2010 Intent CiKelsy curtis CNP ELECTROCARDIOGRAM, On: 24-Nov-2010 Intent COMPLETE (ECG) ([id number])By: Kay KEITH Beatriz B 12 Injection, 1000 On: 24-Nov-2010 Intent mcg (J3420)By: Kay KEITH Beatriz B 12 Injection, 1000 On: 16-Nov-2010 Intent mcg (J3420)By: Comments: Lot #[id number]-04/12Site-left deltoidDose-1 mlgiven by: ISMAEL Murrell LPN, Connie B 12 Injection, 1000 On: 09-Nov-2010 Intent mcg (J3420)By: Kathryn Comments: Lot #[id number]-3.13Site-R arm, [id number] by:Diane Wilson DO DO, Diane B 12 Injection, 1000 On: 04-Nov-2010 Intent mcg (J3420)By: Ankur Comments: Lot #[id number]-3.13Site-Left arm, IMDose 1mlgiven by:Jagruti Sheffield LPN L B 12 Injection, 1000 On: 26-Oct-2010 Intent mcg (J3420)By: Kathryn Comments: Lot #[id number]-3.13Site-L arm, IMDose 1mlgiven by:Diane LEI DO Kathryn DO, Diane B 12 Injection, 1000 On: 19-Oct-2010 Intent mcg (J3420)By: Kathryn Comments: Lot #[id number]-2.13Site-L arm, IMDose 1mlgiven by:Diane SHEFFIELD DO, DO, Kathleen B 12 Injection, 1000 On: 09-Oct-2010 Intent mcg (J3420)By: Diane Peralta DO, DO, Kathleen Ultrasound - RenalBy: On: 09-Oct-2010 Intent Diane Peralta DO Comments: correlate with ct Diane Peralta DO CT - Abdomen (IV On: 07-Oct-2010 Intent Contrast Needed)By: Diane Peralta DO, DO, Kathleen Pulse Oximetry On: 13-Feb-2010 Intent ([id number])By: Kelsy Villanueva CNP Aerosol Treatment On: 13-Feb-2010 Intent ([id number])By: Kelsy Villanueva CNP EKG ([id number])By: On: 22-Oct-2009 Intent Diane Peralta DO Comments: nsr no acute chagnes Diane Peralta DO Solu -Medrol On: 13-Aug-2009 Intent Injection, 125 mg (J2930)By: Kelsy Villanueva CNP Pulse Oximetry On: 13-Aug-2009 Intent ([id number])By: Kelsy Villanueva CNP Aerosol Treatment On: 13-Aug-2009 Intent ([id number])By: Kelsy Villanueva CNP Spirometry On: 26-Mar-2009 Intent ([id number])By: Kathryn POND, Comments: NORMAL Diane Diane Peralta DO Radiology - Cervical On: 19-Aug-2008 Intent SpineBy: Kelsy Villanueva CNP Radiology - Shoulder On: 19-Aug-2008 Intent - RightBy: Kelsy Villanueva CNP EKG ([id number])By: On: 14-Mar-2008 Intent Diane Peralta DO Comments: nsr no acute changes Diane Peralta DO Spirometry On: 14-Mar-2008 Intent ([id number])By: Elli Comments: poor technique Justa GUEVARA Pulse Oximetry On: 14-Mar-2008 Intent ([id number])By: Justa Calloway LPN Pulse Oximetry On: 17-Jan-2008 Intent ([id number])By: Kelsy Villanueva CNP Solu -Medrol On: 17-Jan-2008 Intent Injection, 125 mg Comments: Amt: 2mlLot: [id number]: 06/2010Route: IMSite: right hipTolerated: wellGiven By: ISMAEL Alva (J2930)By: Kelsy Villanueva CNP EKG ([id number])By: On: 14-Nov-2006 Intent Diane Peralta DO Comments: NSR NO ACUTE ISCHCIMIC CHANGES Diane Peralta DO Spirometry On: 14-Nov-2006 Intent ([id number])By: Kathryn POND, Comments: NORMAL Diane Owens DO BIOPSY OF SKIN On: 01-Sep-2006 Intent LESION, SINGLE Comments: DONE 5 X ALL 6 MM PUNCH BX ([id number])By: Diane Peralta DO, DO, Kathleen Planned Medications Vitamin B-12 1000 MCG/ML Injection Solution Ordered: 09-Oct-2010 Pending Kathryn DODiane Kathryn DO, Diane Vitamin B-12 1000 MCG/ML Injection Solution Ordered: 16-Apr-2013 Pending Kathryn DODianeon DO, Diane Vitamin B-12 1000 MCG/ML Injection Solution Ordered: 27-Jul-2013 Pending Visit, Nurse Vitamin B-12 1000 MCG/ML Injection Solution Ordered: 07-Sep-2013 Pending Kathryn DODiane DO, Diane Vitamin B-12 1000 MCG/ML Injection Solution Ordered: 19-Nov-2013 Pending Kathryn DODianeon DO, Diane Vitamin B-12 1000 MCG/ML Injection Solution Ordered: 26-Feb-2014 Pending Kelsy Villanueva CNP Vitamin B-12 1000 MCG/ML Injection Solution Ordered: 26-Apr-2014 Pending Kathryn DODiane Kathryn DO, Diane Vitamin B-12 1000 MCG/ML Injection Solution Ordered: 27-May-2014 Pending Kathryn DO, Diane Kathryn DO, Diane Vitamin B-12 1000 MCG/ML Injection Solution Ordered: 20-Jun-2014 Pending Visit, Nurse Vitamin B-12 1000 MCG/ML Injection Solution Ordered: 29-Aug-2014 Pending Kathryn DODiane Kathryn DO, Diane Vitamin B-12 1000 MCG/ML Injection Solution Ordered: 05-Jan-2013 Pending Johnson GUEVARA Summer Vitamin B-12 1000 MCG/ML Injection Solution Ordered: 30-Oct-2014 Pending Kathryn DO, Diane Kathryn DO, Diane Vitamin B-12 1000 MCG/ML Injection Solution Ordered: 05-Feb-2015 Pending Kathryn DO, Diane Kathryn DO, Diane Vitamin B-12 1000 MCG/ML Injection Solution Ordered: 22-May-2015 Pending Kathryn DO, Diane Kathryn DO, Diane Vitamin B-12 1000 MCG/ML Injection Solution Ordered: 04-Jul-2015 Pending Kathryn DO, Diane Kathryn DO, Diane Vitamin B-12 1000 MCG/ML Injection Solution Ordered: 19-Dec-2015 Pending Kathryn DO, Diane Kathryn DO, Diane Vitamin B-12 1000 MCG/ML Injection Solution Ordered: 01-Apr-2016 Pending Kathryn DO, Diane Kathryn DO, Diane Vitamin B-12 1000 MCG/ML Injection Solution Ordered: 08-Oct-2016 Pending Kathryn DO, Diane Kathryn DO, Diane Vitamin B-12 1000 MCG/ML Injection Solution Ordered: 11-Feb-2017 Pending Kathryn DO, Diane Kathryn DO, Diane Vitamin B-12 1000 MCG/ML Injection Solution Ordered: 01-Mar-2017 Pending Kelsy Villanueva CNP Vitamin B-12 1000 MCG/ML Injection Solution Ordered: 25-Apr-2017 Pending Milana Sesay LPN Vitamin B-12 1000 MCG/ML Injection Solution Ordered: 17-Jan-2015 Pending Kathryn DO, Diane Kathryn DO, Diane Vitamin B-12 1000 MCG/ML Injection Solution Ordered: 12-Aug-2017 Pending Luis Galloway Vitamin B-12 1000 MCG/ML Injection Solution Ordered: 16-Oct-2012 Pending Kathryn DO, Diane Kathryn DO, Diane Vitamin B-12 1000 MCG/ML Injection Solution Ordered: 21-Jun-2012 Pending Kathryn DO, Diane Ktahryn DO, Diane Vitamin B-12 1000 MCG/ML Injection Solution Ordered: 19-Oct-2010 Pending Kathryn DO, Diane Kathryn DO, Diane Vitamin B-12 1000 MCG/ML Injection Solution Ordered: 26-Oct-2010 Pending Kathryn DO, Diane Kathryn DO, Diane Vitamin B-12 1000 MCG/ML Injection Solution Ordered: 04-Nov-2010 Pending Long PLUG OVERWRAP MACHINE TENDER, Jagruti L Vitamin B-12 1000 MCG/ML Injection Solution Ordered: 09-Nov-2010 Pending Kathryn DO, Diane Kathryn DO, Diane Vitamin B-12 1000 MCG/ML Injection Solution Ordered: 16-Nov-2010 Pending Hluszti PLUG OVERWRAP MACHINE TENDER, Serena Vitamin B-12 1000 MCG/ML Injection Solution Ordered: 24-Nov-2010 Pending Kay SUPERVISOR FILTRATION, Beatriz Vitamin B-12 1000 MCG/ML Injection Solution Ordered: 01-Dec-2010 Pending Long PLUG OVERWRAP MACHINE TENDER, Jagruti L Vitamin B-12 1000 MCG/ML Injection Solution Ordered: 07-Dec-2010 Pending Little Osorio Vitamin B-12 1000 MCG/ML Injection Solution Ordered: 17-Dec-2010 Pending Kathryn DO, Diane Kathryn DO, Diane Vitamin B-12 1000 MCG/ML Injection Solution Ordered: 28-Jul-2012 Pending Karissa Bledsoe Vitamin B-12 1000 MCG/ML Injection Solution Ordered: 05-Mar-2011 Pending Devon Little Vitamin B-12 1000 MCG/ML Injection Solution Ordered: 07-May-2011 Pending Cikirsten SUPERVISOR FILTRATION, Beatriz Vitamin B-12 1000 MCG/ML Injection Solution Ordered: 08-Jun-2011 Pending Little Osorio Vitamin B-12 1000 MCG/ML Injection Solution Ordered: 19-Jul-2011 Pending Long PLUG OVERWRAP MACHINE TENDER, Jagruti L Vitamin B-12 1000 MCG/ML Injection Solution Ordered: 25-Aug-2011 Pending Hluszti PLUG OVERWRAP MACHINE TENDER, Serena Vitamin B-12 1000 MCG/ML Injection Solution Ordered: 24-Nov-2011 Pending Justa Calloway PLUG OVERWRAP MACHINE TENDER Vitamin B-12 1000 MCG/ML Injection Solution Ordered: 13-Jan-2012 Pending Hluszti PLUG OVERWRAP MACHINE TENDER, Serena Vitamin B-12 1000 MCG/ML Injection Solution Ordered: 11-Apr-2012 Pending Hluszti PLUG OVERWRAP MACHINE TENDER, Serena Vitamin B-12 1000 MCG/ML Injection Solution Ordered: 10-May-2012 Pending Reena Gaxiola Vitamin B-12 1000 MCG/ML Injection Solution Ordered: 10-May-2012 Pending Reena Gaxiola Vitamin B-12 1000 MCG/ML Injection Solution Ordered: 06-Apr-2011 Pending Wojciech Wall Vitamin B-12 1000 MCG/ML Injection Solution Ordered: 26-Oct-2017 Pending Visit, Nurse Instructions Name Dates Details Vitamin B12 deficiency (non anemic) : How to access health information online Indication: Vitamin B12 deficiency (non anemic) Vitamin B12 deficiency (non anemic) : How to access health information online - Detail Indication: Vitamin B12 deficiency (non anemic) Vitamin B12 deficiency (non anemic) : Patient Instructions Indication: Vitamin B12 deficiency (non anemic) Abnormal blood chemistry : DISCONTINUED - GLUCOSE (21041) Indication: Abnormal blood chemistry Abnormal blood chemistry : DISCONTINUED - Hemoglobin Glyclated (HGB A1C) (05998) Indication: Abnormal blood chemistry Hypercholesteremia : DISCONTINUED - LIPID PANEL (52017) Indication: Hypercholesteremia Vitamin D deficiency, unspecified : DISCONTINUED - CALCIFIDIOL (34002) VIT D 25 Indication: Vitamin D deficiency, unspecified Vitamin B12 deficiency (non anemic) : DISCONTINUED - Vitamin B-12 (cyanocobalamin) (01583) Indication: Vitamin B12 deficiency (non anemic) Joint effusion, knee : How to access health information online Indication: Joint effusion, knee Joint effusion, knee : How to access health information online - Detail Indication: Joint effusion, knee Joint effusion, knee : Patient Instructions Indication: Joint effusion, knee Non-smoker : How to access health information online Indication: Non-smoker Non-smoker : How to access health information online - Detail Indication: Non-smoker Non-smoker : Patient Instructions Indication: Non-smoker BMI 32.0-32.9,adult : How to access health information online Indication: BMI 32.0-32.9,adult BMI 32.0-32.9,adult : How to access health information online - Detail Indication: BMI 32.0-32.9,adult Peroneal nerve palsy, left : Patient Instructions Indication: Peroneal nerve palsy, left Non-smoker : Patient Instructions Indication: Non-smoker Non-smoker : How to access health information online Indication: Non-smoker Non-smoker : How to access health information online - Detail Indication: Non-smoker Vitamin B12 deficiency (non anemic) : How to access health information online Indication: Vitamin B12 deficiency (non anemic) Vitamin B12 deficiency (non anemic) : How to access health information online - Detail Indication: Vitamin B12 deficiency (non anemic) Vitamin B12 deficiency (non anemic) : Patient Instructions Indication: Vitamin B12 deficiency (non anemic) Concussion : Patient Instructions Indication: Concussion Other acute sinusitis : How to access health information online Indication: Other acute sinusitis Other acute sinusitis : How to access health information online - Detail Indication: Other acute sinusitis Other acute sinusitis : Patient Instructions Indication: Other acute sinusitis Depressive disorder : How to access health information online Indication: Depressive disorder Depressive disorder : How to access health information online - Detail Indication: Depressive disorder Depressive disorder : Patient Instructions Indication: Depressive disorder Depressive disorder : Patient Instructions Indication: Depressive disorder Asthma : Patient Instructions Indication: Asthma Hypercholesteremia : Patient Instructions Indication: Hypercholesteremia Encounter for routine adult medical examination : Patient Instructions Indication: Encounter for routine adult medical examination Encounters Lab Order On: 26-Jan-2018 12:17 Encounter Diagnosis: Vitamin B12 deficiency (non anemic) (266.2), Hypercholesteremia End: 26-Jan-2018 12:20 [facility] Office Visit On: 26-Oct-2017 9:45 Encounter Diagnosis: Hypercholesteremia, Hypertension, benign, Vitamin B12 deficiency (non anemic) (266.2), Vitamin D deficiency, unspecified End: 26-Oct-2017 10:32 [facility] Office Visit On: 12-Aug-2017 11:25 Encounter Reason: Injections - The medication the patient is here to receive is vitamin B12 IM.Encounter Diagnosis: Vitamin B12 deficiency (non anemic) (266.2) End: 12-Aug-2017 11:34 [facility] Annotation/Addendum On: 01-Jun-2017 15:25 Encounter Diagnosis: Asthma End: 01-Jun-2017 15:27 [facility] Office Visit On: 25-Apr-2017 15:55 Encounter Reason: Knee Pain - The injury involved the left knee and right knee. Symptoms are located in the left knee and right knee. Note for Knee pain: Bilateral knee pain just with touch. Had knee injection for knee pain., End: 25-Apr-2017 16:42 [ADDITIONAL REASON] Follow up tests - Diagnostic tests include other ([facility]). Encounter Diagnosis: Vitamin B12 deficiency (non anemic) (266.2), Joint effusion, knee, BMI 33.0-33.9,adult, Depressive disorder [facility] Annotation/Addendum On: 15-Mar-2017 16:43 Encounter Diagnosis: Complex renal cyst End: 15-Mar-2017 16:45 [facility] Office Visit On: 09-Mar-2017 14:24 Encounter Reason: Follow up tests - Diagnostic tests include other (labs) and X- Ray (bilateral knees). Note for Discuss procedure results: Seeing DR. 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 Note for Knee pain: Bilateral knee pain just with touchEncounter Diagnosis: Non-smoker, Vitamin B12 deficiency (non anemic) (266.2), Knee pain, bilateral, End: 01-Mar-2017 12:35 Joint symptoms [facility] Office Visit On: 11-Feb-2017 10:49 Encounter Reason: Injections - The medication the patient is here to receive is vitamin B12 IM.Encounter Diagnosis: Vitamin B12 deficiency (non anemic) (266.2) End: 11-Feb-2017 11:14 [facility] Phone Encounter On: 28-Oct-2016 14:17 Encounter Diagnosis: Unspecified Diagnosis End: 28-Oct-2016 14:27 [facility] Office Visit On: 13-Oct-2016 14:44 Encounter Reason: Follow up ER - Reason for hospitalization note:. Patient has been compliant with instructions. Current medication use: no side effects and compliant with dosing regimen. The patient does not feel well.Encounter Diagnosis: Non-smoker End: 13-Oct-2016 17:05 , BMI 32.0-32.9,adult, Peroneal nerve palsy, left, Left leg weakness, Traumatic brain injury, with LOC of 30 min or less, sequela, Concussion, Depressive disorder [facility] Office Visit On: 11-Oct-2016 16:07 Encounter Diagnosis: Traumatic brain injury, with LOC of 30 min or less, sequela, Subdural bleeding, Concussion End: 11-Oct-2016 16:56 [facility] Office Visit On: 08-Oct-2016 14:32 Encounter Reason: Follow up for chronic medical issues - The patient feels well with minor complaints, has decreased energy level and is sleeping well. Patient has been compliant with instructions. Current medication use End: 08-Oct-2016 15:51 : no side effects and compliant with dosing regimen. Patient sleeps 7 hours per night. Nutrition: balanced diet and supplemental vitamins. The medical issues the patient is following up for include All identified problems below, asthma, gastric reflux, high blood pressure, high cholesterol and other., [ADDITIONAL REASON] Follow up tests - Date: (10/06/16 scanned in labs). Encounter Diagnosis: BMI 32.0-32.9,adult, Non-smoker, Impaired fasting glucose , Hypercholesteremia, Hypertension, benign, Vitamin D deficiency, unspecified, Vitamin B12 deficiency (non anemic) (266.2), Asthma, GERD (gastroesophageal reflux disease), Depressive disorder, Traumatic brain injury, with LOC of 30 min or less, sequela [facility] Lab Order On: 04-Oct-2016 14:35 Encounter Diagnosis: Vitamin B12 deficiency (non anemic) (266.2), Vitamin D deficiency, unspecified, Hypertension, benign, Hypercholesteremia, Screening for prostate cancer, Impaired fasting glucose End: 04-Oct-2016 14:45 [facility] Office Visit On: 01-Apr-2016 15:03 Encounter Diagnosis: Vitamin B12 deficiency (non anemic) (266.2) End: 01-Apr-2016 15:15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 Follow up, Laboratory Test Results - Date:. Encounter Diagnosis: Dermatophytosis of the body (110.5), Asthma (493.11), Low HDL (272.5), SCREENING FOR CANCER OF THE PROSTATE (V76.44), Cervical Spasm (728.85) [facility] Office Visit On: 19-Aug-2008 8:57 Encounter Reason: Shoulder Pain - The onset of the shoulder pain has been gradual following an incident not at work and has been occurring in an intermittent pattern for years (5+). The course has been gradually worsenin End: 19-Aug-2008 9:51 g. The shoulder pain is moderate to severe. The shoulder pain is characterized as a burning sensation (sharp at times). The shoulder pain is described as being located in the right shoulder. The shoulde r pain is aggravated by physical activity. Relieving factors include medication (Vioprofen and massage therapy). Associated features include: muscle cramps ,muscle stiffness ,muscle weakness ,multidirec tional instability ,painful ROM ,decreased ROM ,burning sensation ,difficulty overhead activities and difficulty with lifting, but not muscle atrophy ,muscle swelling ,joint swelling ,anterior instabili ty ,posterior instability ,popping/crepitus ,warmth ,erythema ,fever ,chills ,difficulty dressing oneself ,difficulty combing hairs ,difficulty hooking bra ,difficulty with pushing ,difficulty with pull ing or other joint complaints. The shoulder pain was preceeded by trauma (Pt said had surgery and took out bone spur in rotator cuff). Previous diagnostic tests include plain radiographs ,MRI and CT. Pr evious evaluations have included orthopaedic surgeon and primary care physician. Previous occupational therapies have included stretching exercises and strengthening exercises There has been no use of a ssistive devices. Previous medication use has included Ibuprofen (and vicoprofen). Encounter Diagnosis: Shoulder pain (719.41), Neck pain (723.1) [facility] Office Visit On: 29-Mar-2008 8:05 Encounter Reason: Follow up, Laboratory Test Results - Date: (03/28/08). Encounter Diagnosis: Hypercholesteremia (272.0) End: 29-Mar-2008 8:31 [facility] Historical Summary On: 20-Mar-2008 15:27 [facility] End: 20-Mar-2008 15:29 Office Visit On: 14-Mar-2008 15:26 Encounter Reason: Follow up for chronic medical issues - The patient feels well with minor complaints ,has decreased energy level and is sleeping poorly. Patient has been compliant with instructions. Current medication u End: 14-Mar-2008 16:45 se: no side effects and compliant with dosing regimen. Patient sleeps 6 hours per night. Nutrition: balanced diet and no supplemental vitamins & iron. The medical issues the patient is following up for include All identified problems below ,asthma and high cholesterol. Encounter Diagnosis: Hypertension,benign(401.1), Asthma (493.11), GERD (530.81), Hypercholesteremia (272.0), Other testicular dysfunction (257.8) [facility] Office Visit On: 17-Jan-2008 7:51 Encounter Reason: Cough - The onset of the cough has been acute. The cough is characterized as dry. The amount of sputum produced is scanty. The symptoms have been associated with dyspnea and wheezing. Encounter Diagnosis: End: 17-Jan-2008 10:27 BRONCHITIS, NOT SPECIFIED ACUTE OR CHRONIC (490.), Asthma (493.11), Backache, unspecified (724.5) [facility] Office Visit On: 21-Sep-2007 8:39 Encounter Reason: Follow up for chronic medical issues - The patient feels well with minor complaints ,has good energy level and is sleeping well. Patient has been compliant with instructions. Current medication use: no End: 21-Sep-2007 9:36 side effects and compliant with dosing regimen. Patient sleeps 6 hours per night. Nutrition: balanced diet and supplemental vitamins. The medical issues the patient is following up for include All ident ified problems below ,asthma ,gastric reflux ,high blood pressure and high cholesterol. , [ADDITIONAL REASON] Follow up, Laboratory Test Results - Date: (09-18-07). Encounter Diagnosis: Low back pain (724.2), Hypercholesteremia (272.0), Shoulder pain (719.41), Neck pain (723.1), Cervical Spasm (728.85), GERD (530.81), Headache, tension (307.81) [facility] Office Visit On: 03-Mar-2007 12:57 Encounter Reason: Follow up, Laboratory Test Results - Date: (02/08/07 on face sheet). 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 Patient has been compliant with instructions. Current medication use: no side effects ,compliant with dosing regimen and considered effective by patient. Patient sleeps 4 hours per night. Impact of disease: no overall impact. Nutrition: balanced diet. The medical issues the patient is following up for include All identified problems below ,asthma ,gastric reflux and high blood pressure. blood pressure range : (117/80). Encounter Diagnosis: Hypertension,benign(401.1), GERD (530.81), Asthma (493.11), Arthralgia (719.40) [facility] Historical Summary On: 26-Oct-2006 14:18 [facility] End: 26-Oct-2006 14:24 Office Visit On: 01-Sep-2006 14:14 Encounter Reason: Skin lesion - The skin lesion appeared gradually (PT PRESENT AND STATES SOME OF THEM ARE CONCERNING-- SHE IS IN SCHOOL FOR NURSES AID) and has been occurring for 3 years. It has been increasing in End: 01-Sep-2006 14:54 size. The skin lesion is characterized as red ,brown and flat. The skin lesion is located on the back. There has been no associated alopecia ,anorexia ,chills ,fatigue ,fever ,itching ,kidney disease ,l iver disease ,loss of sensation ,lymphadenopathy ,malaise ,mucous membrane lesions ,nail changes ,pain or weight loss. Encounter Diagnosis: Atypical Nevus(238.2) [facility] Historical Summary On: 23-Jun-2006 12:59 [facility] End: 23-Jun-2006 13:14 Office Visit On: 23-Jun-2006 11:44 Encounter Reason: Follow up ER - Reason for hospitalization note: (back pain/spasm). Patient has been compliant with instructions. Current medication use: no side effects and compliant with dosing regimen. The patient fe End: 23-Jun-2006 12:10 els well with minor complaints (still some back pain-- WAS WORKING IN [employer] AND HAD AN INCIDENT SAW DR MATA AT [employer]) ,has good energy level and is sleeping well. Nutrition: balanced diet and no supplemental vitamins & iron. Note for Follow up ER: Pt was @ work and had back spasm.Encounter Diagnosis: Cervical Spasm (728.85), Cervical strain (847.0), Low back pain (724.2) [facility] Historical Summary On: 17-Feb-2006 16:15 [facility] End: 17-Feb-2006 16:17 Payers Aetna InsuranceRobdiomedes Styles; a guarantor
--- OUTSIDE RECORDS SUMMARY | 2018-05-17 09:16 | XMS RPT_ITS ---
:1965 Author Organization OHIP Care Team Providers Name Role Phone JIGNESH URENA Attending Unavailable DR. DIANE PADGETT DO Primary Care Unavailable Diane Padgett DO Attending Unavailable iDane Padgett DO Referring Unavailable Diane Padgett DO Consulting Unavailable Rozina Qureshi Attending Unavailable Diane Padgett Referring Unavailable Diane Padgett Primary Care Unavailable Roizna Qureshi Attending Unavailable Diane Padgett Referring Unavailable Rozina Qureshi Attending Unavailable Diane Padgett Referring Unavailable Diane Padgett Attending Unavailable Diane Padgett Primary Care Unavailable Diane Padgett Referring Unavailable Purpose Purpose PROBLEMS PROBLEMS No Problem Records FoundPROCEDURES PROCEDURES No Procedure Records FoundVITAL SIGNS VITAL SIGNS No Vital Signs Records FoundRESULTS RESULTS LIPID PROFILE Collected: 02/11/2018 Status: F Source: [place] 9:48 AM [facility] REPOSITORY TYPE CODE TESTS RESULT OUT OF RANGE REFERENCE UNITS LAB L501.4900 200 mg/dL Normal CHOL 168 Result Comment: <200 mg/dL Desirable 200-240 mg/dL Borderline >240 mg/dL High Risk LAB L501.5000 mg/dL Normal TRIG 117 Result Comment: The drugs N-Acetylcysteine and Metamizole may falsely depress this assay. Serum Triglycerides Reference Interval Normal <150 mg/dL Borderline high 150 - 199 mg/dL High 200 - 499 mg/dL Very High > or = 500 mg/dL LAB L501.6400 mg/dL Low HDL 39 Result Comment: The drugs N-Acetylcysteine and Metamizole may falsely depress this assay. Reference Range HDL <40 mg/dL Low HDL Cholesterol HDL >or= 60 mg/dL High HDL Cholesterol LAB L501.6500 0-130 mg/dL Normal LDL 106 LAB L501.6600 5-40 mg/dL Normal VLDL 23 Performed By: #### L500.4100 #### [facility] [address] [place], [address] VITAMIN B12 Collected: 02/11/2018 Status: F Source: [place] 9:48 AM [facility] REPOSITORY TYPE CODE TESTS RESULT OUT OF RANGE REFERENCE UNITS LAB L503.0105 211-911 pg/mL Normal Vitamin B12 523 Performed By: #### L503.0105 #### [facility] [address] [place], [address] PACEMAKER CHECK Observed: 12/21/2017 Status: F Source: [place] 4:38 PM [facility] REPOSITORY [facility] [address] [place] [address] Pacemaker Check Date of Service: 12/21/17 1622 MR#: [id number] Acct: [id number] Name: PRADEEP STYLES Rep #: [id number] : 1965 From: Rozina Titus Age/Sex: 52/M [place] [facility] [place] Status: Signed Billing Codes ILR Device Interrogate: Yes 12/21/17 1624 <Electronically signed by Rozina Qureshi > Date Rozina Qureshi 12/21/17 1638<Electronically signed by Katia CARR> Cosigner Signature: Date (if applicable) Katia Avina CC: Sreedhar Simmons MD PACEMAKER CHECK Observed: 09/09/2017 Status: F Source: DATTO 4:04 [facility] [address] [place] [address] Pacemaker Check Date of Service: 09/08/17 1849 MR#: [id number] Acct: [id number] Name: PRADEEP STYLES Rep #: [id number] : 1965 From: Rozina Titus Age/Sex: 52/M [place] [facility] [place] Status: Signed Billing Codes ILR Device Interrogate: Yes 09/08/17 1853 <Electronically signed by Rozina Qureshi > Date Rozina Qureshi 09/09/17 1604<Electronically signed by Sreedhar Simmons MD> Cosignseverino Signature: Date (if applicable) Sreedhar Simmons MD CC: PACEMAKER CHECK Observed: 06/21/2017 Status: F Source: [place] 8:48 AM [facility] REPOSITORY [facility] [address] [place] [address] Pacemaker Check Date of Service: 06/08/171655 MR#: [id number] Acct: [id number] Name: PRADEEP STYLES Rep #: [id number] : 1965 From: Rozina Qureshi Age/Sex: 52/M [place] [facility] [place] Status: Signed Comments Summary Comments: Remote Implantable Loop Recorder Evaluation: Remote interrogation shows no patient activated episodes, no tachy, no pauses, no kim and no AT/AF episodes since 03/08/17. Presenting rhythm shows NSR @ 60 bpm. Battery ok. Next remote f/u appt scheduled for in 3 mos. Device Device Date Interviewed: 06/08/17 Follow-up Location: remote Interview Reason: scheduled follow up Front End Technician: [employer] Name: Reveal LinQ Model: [id number] Serial #: [id number] Implant Date: 10/07/14 Year(s): 2 Implant Physician: Dr. Sreedhar Simmons Patient Characteristics Patient Substrate: Syncope Device Characteristics Type: Implantable loop recorder Billing Codes ILR Device Interrogate: Yes Assessment AND Plan Problems 1. Status post placement of implantable loop recorder Z95.818 2. Syncope and collapse R55 06/20/17 0934 <Electronically signed by Rozina Qureshi > Date Rozina Qureshi 06/21/17 0848<Electronically signed by Sreedhar Simmons MD> Cosigner Signature: Date (if applicable) Sreedhar Simmons MD CC: .GFR Collected: 04/18/2017 Status: F Source: [facility] 12:22 PM [facility] REPOSITORY TYPE CODE TESTS RESULT OUT OF REFERENCE UNITS RANGE LAB GFRAA(LOINC ml/min/1.73 ) sqm GFR 78 [place] Result Comment: GFR Population mean for , Non- Americans Ages 20-29 = 116 mL/min/1.73 sq.m. Ages 30-39 = 107 mL/min/1.73 sq.m. Ages 40-49 = 99 mL/min/1.73 sq.m. Ages 50-59 = 93 mL/min/1.73 sq.m. Ages 60-69 = 85 mL/min/1.73 sq.m. Ages 70+ = 75 mL/min/1.73 sq.m. Chronic Kidney Disease: Less than 60 mL/min/1.73 square meters End Stage Renal Disease: Less than 15 mL/min/1.73 square meters LAB GFRNO(LOINC) ml/min/1.73sqm GFR Non- >60 Result Comment: GFR Population mean for , Non- Americans Ages 20-29 = 116 mL/min/1.73 sq.m. Ages 30-39 = 107 mL/min/1.73 sq.m. Ages 40-49 = 99 mL/min/1.73 sq.m. Ages 50-59 = 93 mL/min/1.73 sq.m. Ages 60-69 = 85 mL/min/1.73 sq.m. Ages 70+ = 75 mL/min/1.73 sq.m. Chronic Kidney Disease: Less than 60 mL/min/1.73 square meters End Stage Renal Disease: Less than 15 mL/min/1.73 square meters Performed By: #### GFR, CMP #### [address] [address] CMP Collected: 04/18/2017 Status: F Source: [facility] 12:22 PM [facility] REPOSITORY TYPE CODE TESTS RESULT OUT OF REFERENCE UNITS RANGE LAB 1547-9 70-105 mg/dL GLUCOSE 97 LAB NA(LOINC) 136-146 mEq/L Sodium Level 138 LAB K(LOINC) 3.5-5.1 mEq/L Potassium Level 4.6 LAB CL(LOINC) 98-107 mEq/L Chloride 101 LAB CO2(LOINC) 22-29 mEq/L CO2 High 30 LAB EBAL(LOINC mEq/L ) Electrolyte Balance 7.0 LAB BUN(LOINC) 7.0-18.0 mg/dL BUN 14.3 LAB CRE(LOINC) 0.6-1.2 mg/dL Creatinine Lvl (s) 1.2 LAB BC(LOINC) 7-27 ratio BUN/Creatinine 12 Ratio LAB CA(LOINC) 8.4-10.2 mg/dL Calcium Lvl 9.4 LAB PROT(LOINC 6.0-8.3 G/dL ) Total Protein 6.8 LAB ALB(LOINC) 3.5-5.0 G/dL Albumin Level 4.4 LAB GLB(LOINC) G/dL Globulin 2.4 LAB AG(LOINC) 1.1-2.5 ratio A/G Ratio 1.8 LAB BILT(LOINC 0.2-1.0 mg/dL ) Bili Total 0.3 LAB AP(LOINC) 40-135 IU/L Alk Phos 71 LAB AST(LOINC) 10-40 IU/L AST/SGOT 23 LAB ALT(LOINC) 10-35 IU/L ALT/SGPT 31 Performed By: #### GFR, CMP #### [place] [address] ALLERGIES ALLERGIES DATE TYPE / CODE NAME / CODE REACTION SEVERITY SOURCE 10/04/2014 Drug codeine/F006 Unknown Unknown [facility] Allergy/4160 [id number]([place] 7134302(SNOMED M) Repository CT) 10/04/2014 Drug hydrocodone/ Unknown Unknown [facility] Allergy/4160 [id number]([facility] [address](SNOMED XNORM) Repository CT) ENCOUNTERS ENCOUNTERS ADMIT/DISCHARGE ACCOUNT NUMBER ADMITTING ENCOUNTER LOCATION SOURCE CLASS 02/15/2018 [id number] Ambulatory Building:[facility] [place] Practices Repository 02/11/2018 [id number] Ambulatory [facility] ding:LAB.FUT Repository URE 12/21/2017/12/22/19 [id number] Ambulatory BMSBuilding: [place] [facility] Repository 09/08/2017/09/09/19 [id number] Ambulatory BMSBuilding: [place] [facility] Repository 06/08/2017/06/09/19 [id number] Ambulatory BMSBuilding: [place] [facility] Repository 04/18/2017/04/18/19 [id number] Ambulatory [address] ding:[facility] Repository FUNCTIONAL STATUS FUNCTIONAL STATUS No Functional Status Records FoundEQUIPMENT EQUIPMENT No Equipment Records FoundPAYERS PAYERS ENCOUNTER GUARANTOR PAYER SUBSCRIBER SOURCE 02/15/2018 Pradeep A Primary Pradeep A OHIP Practices MorenoDOB: Insurance:Aetna MorenoDOB: Repository [id number] InsurancePolicy [id number] [place] Number: [facility] [place], [place] [id number] [place], [place] [address]Ikx: ([phone]) Date:[id number] 770[address]Teo: (HP)Tel: Name:[facility] [phone] () [address] [place] [address] () [address]NE: 02/15/2018 Secondary Pradeep A [place] Practices Insurance:CBCA/[facility], MorenoDOB: Repository [facility] Number: [id number] [facility] Date: - [place], [place] [id number] [id number]: [phone]) Name:[facility] [phone] () [address] [place] [address]YW: 02/15/2018 Tertiary Pradeep A [place] Practices Insurance:Health MorenoDOB: Repository [facility] [id number] Number: Jimi [id number] [place], [place] Date:2006-02-28 100[address]Urj: [phone] [phone] () Name:[facility] [address] [address]WP NOT USE, ADD [place], [place] [address]XB: 02/15/2018 Tertiary Pradeep A OHIP Practices Insurance:Medical MorenoDOB: Repository [facility] [id number] Number: Jimi [id number] [facility], [place] Date:2014-02-28 [address]Sxr: [phone] [phone] () Name:[facility] [address] [address]Fmzvgldea, [place] [id number]: 02/11/2018 PRADEEP A Primary PRADEEP A [place] [id number] Insurance:AETNAPolicy MORENODOB: Community [place] Number: [id number], [place] [id number] Repository [address]Fvf: ([phone]) Date:[id number] [address] () [place] [address]UX: 02/11/2018 Secondary NOT GIVENUNK [place] Insurance:SELF PAY [facility] Number: Effective Repository Date:2018-02-02 12/21/2017 PRADEEP A Primary PRADEEP A [place] [id number] Insurance:AETNAPolicy MORENODOB: [facility] Number: [id number], [place] [id number] Repository [address]Qwo: ([phone]) Date:[id number] [address] () 237[place], [place] [address]QE: 12/21/2017 Secondary NOT GIVENUNK [place] Insurance:SELF PAY [facility] Number: Effective Repository Date:2017-12-21 09/08/2017 PRADEEP A Primary PRADEEP A [place] [id number] Insurance:AETNAPolicy MORENODOB: [facility] Number: [id number], [place] [id number] Repository [address]Rmr: ([phone]) Date:0760-65-86MS [address] () 166296[place]DB[place], [place] [address]TT: 09/08/2017 Secondary NOT GIVENUNK [place] Insurance:SELF PAY [facility] Number: Effective Repository Date:2017-09-08 06/08/2017 PRADEEP A Primary PRADEEP A [place] [id number] Insurance:AETNAPolicy MORENODOB: [facility] Number: [id number], [place] [id number] Repository [address]Rxn: Date:2997-37-90RC [phone]~330- [id number] ARCENIO FOX 3 () [address]YC: 06/08/2017 Secondary NOT GIVENUNK [place] Insurance:SELF PAY [facility] Effective Repository Date:2017-06-08 04/18/2017 PRADEEP A Primary [facility] MORENODOB: Insurance:AET MORENODOB: [facility] [id number] [employer] [facility] [place] [id number] Repository [place] 08IPolicy Number: [place], [place] [id number] [place] [address]~TINAMORENO6 Date:2017-04-18 [address]Ojc: [phone] [email or web address]: [phone] () Name:MITZI Schaffer ()Tel: [phone] (NM) [phone] (WP) BRUN[place] Perez [address]UT: SOCIAL HISTORY SOCIAL HISTORY No Social History Records FoundFAMILY HISTORY FAMILY HISTORY No Family History Records FoundPREGNANCY No Status Records FoundADVANCE DIRECTIVES ADVANCE DIRECTIVES No Advanced Directives Records FoundINFORMATION SOURCE INFORMATION SOURCE DATE CREATED AUTHOR AUTHOR'S ORGANIZATION 03/22/2018 [facility]
== END ==
PROVIDERS: Family Provider Internal Medicine; PCP Internal Medicine; Referring Provider Internal Medicine; Visit Provider Internal Medicine
DX: E78.00 Pure hypercholesterolemia, unspecified (principal); E53.8 Deficiency of other specified B group vitamins
CPT/HCPCS: 36415; 80061; 82607

== ENCOUNTER → 2018-07-04 09:27 | Outpatient (CLI) | payer OTHER, SELFPAY ==
[2018-07-04 13:08] LABS: Vitamin B12 590 pg/mL (211-911)
[2018-07-04 13:24] LABS: ALB/GLOB Ratio 1.2 RATIO (0.9-2.4); AST(SGOT) 25 U/L (15-37); Alanine Aminotransfer ALT/SGPT 40 U/L (16-61); Albumin, Serum 3.8 g/dL (3.2-5.0); Alkaline Phosphatase 80 U/L (45-117); Anion Gap 5 (5-15); BUN 18 mg/dL (7-18); BUN/Creat Ratio 15.9 RATIO (10-20); Calcium,Total 8.5 mg/dL (8.5-10.1); Chloride 106 mmol/L (98-107); Creatinine, Serum 1.13 mg/dL (0.70-1.30); EST Glomerular Filtration Rate 72 mL/min (>60); Est Glom Filt Rate - Afr Amer 87 mL/min (>60); Free T3 3.2 pg/mL (2.18-3.98); Globulin 3.1 g/dL (2.2-4.2); Glucose 101 mg/dL (74-106); Potassium 3.7 mmol/L (3.5-5.1); Protein, Total 6.9 g/dL (6.4-8.2); Sodium Level 137 mmol/L (136-145); T4 Free Direct 0.88 ng/dL (0.76-1.46); Thyroid Stim Hormone (TSH) 0.82 uIU/mL (0.358-3.74)
== END ==
PROVIDERS: Family Provider Internal Medicine; PCP Internal Medicine; Referring Provider Internal Medicine; Visit Provider Internal Medicine
DX: N18.2 Chronic kidney disease, stage 2 (mild) (principal); E53.8 Deficiency of other specified B group vitamins; R23.1 Pallor
CPT/HCPCS: 36415; 80053; 82607; 84439; 84443; 84481

== ENCOUNTER → 2019-05-08 16:18 | Outpatient (CLI) | payer OTHER, SELFPAY ==
[2019-05-08 16:35] LABS: Bacteria 0 SEEN /hpf (None Seen); Mucous, Urine 0 SEEN /hpf (<or=2+); Red Blood Cells-Urine 0 SEEN /hpf (0-5); Squamous Epithelial Cells - UA 0 SEEN /hpf (0-5); White Blood Cells 0 SEEN /hpf (0-5)
[2019-05-08 17:41] LABS: Color, Urine Yellow (Yellow); Glucose, Dipstick Normal (Normal); Ketone-Dipstick Negative (Negative); Leukocyte Esterase-Dipstick Negative /ul (Negative); Nitrite-Dipstick Negative (Negative); Occult Blood-Urine Negative /ul (Negative); Protein-Dipstick 15 mg/dl (Negative); Urine Bilirubin Dipstick Negative (Negative); Urine Clarity Sl. Cloudy (Clear); Urine Urobilinogen Normal (Normal); Urine pH 6.5 (5.0 - 8.0)
[2019-05-08 17:43] LABS: Absolute Lymphocyte Count 2.55 X10^3/uL (0.83-4.51); Absolute Neutrophil Count 5.2 X10^3/uL (2.0-7.7); Basophil# 0.06 X10^3/uL; Basophil% 0.7 % (0-1); Eosinophil# 0.19 X10^3/uL; Eosinophils% 2.1 % (0-5); Hematocrit 39.8 % (40-54); Hemoglobin 13.7 g/dL (13.0-16.5); Lymphocyte # 2.55 X10^3/ul (4.0); Lymphocyte % 28.3 % (19-41); Mean Corp Hgb Conc 34.4 g/dL (32-36); Mean Corpuscular Hgb 32.5 pg (27.0-32.0); Mean Corpuscular Volume 94.3 fL (80-94); Mean Platelet Vol. 9.5 fl (6.2-12.0); Monocyte# 0.97 X10^3/uL; Monocyte% 10.8 % (0-10); NRBC Flagged by Analyzer 0 % (0-5); Neutrophil % 57.7 % (47-70); Platelet Count 245 K/mm3 (150-450); RBC Distribution Width CV 13.2 % (11.6-14.6); RBC Distribution Width SD 45.9 fl (35.1-43.9); Red Blood Count 4.22 M/mm3 (4.6-6.2)
[2019-05-08 17:58] LABS: Vitamin B12 449 pg/mL (211-911); Vitamin D,25 Hydroxy 105.6 ng/mL
[2019-05-08 18:02] LABS: ALB/GLOB Ratio 1.2 RATIO (0.9-2.4); AST(SGOT) 27 U/L (15-37); Alanine Aminotransfer ALT/SGPT 40 U/L (16-61); Alkaline Phosphatase 66 U/L (45-117); Anion Gap 5 (5-15); BUN 21 mg/dL (7-18); BUN/Creat Ratio 16.8 RATIO (10-20); Calcium,Total 8.9 mg/dL (8.5-10.1); Chloride 103 mmol/L (98-107); Cholesterol 205 mg/dL (200); Creatinine, Serum 1.25 mg/dL (0.70-1.30); EST Glomerular Filtration Rate 64 mL/min (>60); Est Glom Filt Rate - Afr Amer 77 mL/min (>60); Globulin 3.3 g/dL (2.2-4.2); Glucose 95 mg/dL (74-106); High Density Lipoprotein 39 mg/dL; Potassium 3.9 mmol/L (3.5-5.1); Protein, Total 7.3 g/dL (6.4-8.2); Sodium Level 136 mmol/L (136-145); Triglycerides 204 mg/dL; Very Low Density Lipoprotein 41 mg/dL (5-40)
== END ==
PROVIDERS: PCP Internal Medicine; Referring Provider Internal Medicine; Visit Provider Internal Medicine
DX: I10 Essential (primary) hypertension (principal); E78.00 Pure hypercholesterolemia, unspecified; E53.8 Deficiency of other specified B group vitamins; E55.9 Vitamin D deficiency, unspecified
CPT/HCPCS: 36415; 80053; 80061; 81001; 82306; 82607; 85025

== ENCOUNTER → 2019-05-09 | Outpatient (CLI) | payer OTHER, SELFPAY | END | disposition home or self-care (01) | PROVIDERS: PCP Internal Medicine; Referring Provider Internal Medicine; Visit Provider Internal Medicine | DX: E78.00 Pure hypercholesterolemia, unspecified (principal); I10 Essential (primary) hypertension; E55.9 Vitamin D deficiency, unspecified; E53.8 Deficiency of other specified B group vitamins ==

== ENCOUNTER → 2021-09-17 | Outpatient (CLI) | payer OTHER, SELFPAY ==
[2021-09-17 17:37] LABS: Hematocrit 42.6 % (40-54); Hemoglobin 14.6 g/dL (13.0-16.5); Mean Corp Hgb Conc 34.3 g/dL (32-36); Mean Corpuscular Hgb 32.8 pg (27.0-32.0); Mean Corpuscular Volume 95.7 fL (80-94); Mean Platelet Vol. 9.5 fl (6.2-12.0); Platelet Count 310 K/mm3 (150-450); RBC Distribution Width CV 13.5 % (11.6-14.6); RBC Distribution Width SD 47.5 fl (35.1-43.9); Red Blood Count 4.45 M/mm3 (4.6-6.2); White Blood Count 8.7 K/mm3 (4.4-11.0)
[2021-09-17 18:15] LABS: Anion Gap 4 (5-15); BUN 15 mg/dL (7-18); BUN/Creat Ratio 11.8 RATIO (10-20); Calcium,Total 9.1 mg/dL (8.5-10.1); Chloride 104 mmol/L (98-107); Creatinine, Serum 1.27 mg/dL (0.70-1.30); EST Glomerular Filtration Rate 62 mL/min (>60); Est Glom Filt Rate - Afr Amer 75 mL/min (>60); Glucose 95 mg/dL (74-106); Sodium Level 138 mmol/L (136-145)
== END | disposition home or self-care (01) ==
LOC: LAB 15:26
PROVIDERS: PCP Internal Medicine; Visit Provider Physician Assistant Medical
DX: Z01.812 Encounter for preprocedural laboratory examination (principal); Z98.890 Other specified postprocedural states
CPT/HCPCS: 36415; 80048; 85027

== ENCOUNTER 2021-09-22 10:23 | Day surgery (SDC) | payer OTHER, SELFPAY ==
[2021-09-21 15:17] VITALS: BMI 29.7
--- NOTE | 2021-09-22 12:34 | CL.IE_ITS ---
Patient: PRADEEP STYLES Study Date: 09/22/2021 Performing: Sreedhar Simmons MD : 1965 Age: 56 Gender: male PROCEDURES PERFORMED [id number])REMOVAL OF LOOP RECORDER INDICATIONS PROCEDURE DETAILS The patient was brought to the Catheterization Lab in the postabsorptive nonsedated state. Infor med consent was obtained prior to the procedure. Local anesthetic was given subcutaneously to the le ft upper chest area with Lidocaine 2%. Incision was made to the left upper chest. Steri-strips applie d to left subclavicular incision. The patient tolerated the procedure well. Estimated Blood Loss: 5 ml's IMPLANTED / EX-PLANTED DEVICES EXPLANTED DEVICE(S): ICM Loop Recorder - Bleaching Supervisor: [employer], Model # , Serial #[id number] DEVICE PARAMETERS CONCLUSIONS / RECOMMENDATIONS Device Recommendations: Follow up with Primary Care Physician PROCEDURE MEDICATIONS Versed 1 mg IV Antibiotic given in appropriate timeframe. Ancef 2 Gm IV @ 09/22/2021 11:52:49 Signed By Sreedhar Simmons MD On 09/22/2021 12:36:20 Signed By Sreedhar Simmons MD On 09/22/2021 12:33:34 Sreedhar Simmons MD
== END 2021-09-22 13:55 | disposition home or self-care (01) ==
PROVIDERS: PCP Internal Medicine; Referring Provider Internal Medicine Cardiovascular Disease; Visit Provider Internal Medicine Cardiovascular Disease
DX: Z45.09 Encounter for adjustment and management of other cardiac device (principal); Z87.891 Personal history of nicotine dependence
CPT/HCPCS: 33286; 99152; 99153; J7040

== ENCOUNTER → 2021-11-18 | Outpatient (CLI) | payer OTHER, SELFPAY ==
--- NOTE | 2021-11-18 15:28 | MRI_ITS ---
STUDY: MRI LEFT SHOULDER REASON FOR EXAM: Left shoulder pain, limited range of motion. TECHNIQUE: Standardized fat and water weighted pulse sequences were obtained in all 3 orthogonal planes. COMPARISON: Radiographs 05/10/2012. FINDINGS: There is mild supraspinatus tendinosis, a small non retracted full-thickness tear of the distal anterior supraspinatus tendon at the greater tuberosity insertion (T2 coronal image 15; proton-density coronal image 15) measuring 0.2 cm in length with mild delamination (T2 coronal image 14), and a small intermediate grade partial-thickness tear of the articular surface of the distal supraspinatus tendon at the greater tuberosity insertion (T2 coronal images 12, 13) measuring 0.2 cm in length.. Normal infraspinatus tendon. Normal subscapularis tendon. Normal teres minor tendon. Normal supraspinatus muscle. Normal infraspinatus muscle. Normal subscapularis muscle. Normal teres minor muscle. Normal glenohumeral articulation. There is mild cystic change of the greater tuberosity and mild subchondral cystic change of the anterior humeral head. Normal biceps labral complex. Normal intracapsular long biceps tendon. Normal labrum. Normal capsulo- ligamentous complex. There is acromioclavicular arthrosis with capsular thickening effacing the subacromial fat (T2 sagittal images 9, 10). There is a Type II morphology (curved), with a neutral orientation. There is a very small volume of subacromial-subdeltoid bursal fluid (T2 coronal images 9-13). Normal visualized coracohumeral and coracoacromial ligaments. Normal deltoid muscle. Normal trapezius muscle. MRI/Upper Ext Joint Only(Routine) IMPRESSION: Small full-thickness and partial-thickness tears and mild tendinosis of the supraspinatus tendon. Acromioclavicular arthrosis. Very small volume of subacromial-subdeltoid bursal fluid. Electronically Signed: Xavier Clark MD at 17:10 EDT ,
== END | disposition home or self-care (01) ==
LOC: MRI 15:17
PROVIDERS: PCP Internal Medicine; Visit Provider Student in an Organized Health Care Education/Training Program
DX: M75.112 Incomplete rotator cuff tear or rupture of left shoulder, not specified as traumatic (principal); M19.012 Primary osteoarthritis, left shoulder; M75.82 Other shoulder lesions, left shoulder
CPT/HCPCS: 73221

== ENCOUNTER 2022-01-28 09:11 | Day surgery (SDC) | payer OTHER, SELFPAY ==
--- NOTE | 2022-01-14 13:20 | RAD_ITS ---
STUDY: X-RAY CHEST REASON FOR EXAM: Male, 56 years old. PREOP TECHNIQUE: Frontal and lateral views of the chest. COMPARISON: None. FINDINGS: The lungs are clear and expanded. There is no demonstrated pleural abnormality. Normal size heart. Normal mediastinum and jaylen. Normal visualized pulmonary arteries. Normal visualized aortic arch and descending thoracic aorta. Normal visualized thoracic spine. Normal visualized ribs, clavicles, and shoulders. There is no demonstrated abnormality of the visualized soft tissue structures of the upper abdomen. RAD/Chest PA and Lateral IMPRESSION: Normal x-ray examination of the chest. Electronically Signed: Adal Elliott MD at 16:52 EST ,
[2022-01-14 14:06] LABS: Basophil# 0.06 X10^3/uL; Basophil% 0.6 % (0-1); Eosinophil# 0.26 X10^3/uL; Eosinophils% 2.8 % (0-5); Hematocrit 41.9 % (40-54); Hemoglobin 14.5 g/dL (13.0-16.5); Lymphocyte % 23.6 % (19-41); Mean Corp Hgb Conc 34.6 g/dL (32-36); Mean Corpuscular Hgb 33.1 pg (27.0-32.0); Mean Corpuscular Volume 95.7 fL (80-94); Mean Platelet Vol. 9.5 fl (6.2-12.0); Monocyte% 8.6 % (0-10); NRBC Flagged by Analyzer 0 % (0-5); Neutrophil # 5.97 X10^3/uL (2.7-7.7); Neutrophil % 63.9 % (47-70); Platelet Count 289 K/mm3 (150-450); RBC Distribution Width SD 45.9 fl (35.1-43.9); Red Blood Count 4.38 M/mm3 (4.6-6.2); White Blood Count 9.3 K/mm3 (4.4-11.0)
[2022-01-14 14:21] LABS: International Normalized Ratio 1.1; Prothrombin Time (Protime)PT. 13.4 SECONDS (11.7-14.9)
[2022-01-14 14:22] LABS: Partial Thromboplast Time 28.2 Seconds (24.1-36.2)
[2022-01-14 14:24] LABS: Anion Gap 5 (5-15); BUN 20 mg/dL (7-18); BUN/Creat Ratio 18.2 RATIO (10-20); Calcium,Total 8.7 mg/dL (8.5-10.1); Chloride 106 mmol/L (98-107); EST Glomerular Filtration Rate 73 mL/min (>60); Est Glom Filt Rate - Afr Amer 88 mL/min (>60); Glucose 105 mg/dL (74-106); Sodium Level 140 mmol/L (136-145)
[2022-01-14 14:30] LABS: AST(SGOT) 17 U/L (15-37); Alanine Aminotransfer ALT/SGPT 36 U/L (16-61); Albumin, Serum 3.7 g/dL (3.2-5.0); Alkaline Phosphatase 78 U/L (45-117); Bilirubin, Direct 0.09 mg/dL (0.00-0.30); Globulin 3.1 g/dL (2.2-4.2); Protein, Total 6.8 g/dL (6.4-8.2)
[2022-01-28] VITALS (8 sets, daily range): BP systolic 91–105; BP diastolic 70–86; PULSE 53–71; RESP 16–20; TEMP 35.9–36.6; O2SAT 91–99; BMI 29.0
[2022-01-28] MEDS: Lactated Ringers 1,000 ML 15 ML IV ×2 (10:07→12:00)
[2022-01-28] MEDS: Cefazolin 2 GM in 0.9% Normal Saline 100 ML IV (11:20)
[2022-01-28] MEDS: Epinephrine (1 mg/ml) 1 MG/ML VIAL (11:40)
--- NOTE | 2022-01-28 13:29 | DCINST_ITS ---
Discharge Instructions Follow Up Care Test Results: Test results from this visit will be discussed in further detail at your follow- up appointment, if applicable. Discharge Plan Admission Primary Reason for Your Visit: Left shoulder scope Attending Provider: Bertin Thomas Primary Care Provider: Diane Peralta Instructions Additional Instructions / Restrictions: Follow preprinted instructions from your surgeons office. Discharge Orders/Prescriptions Prescriptions: New oxycodone 5 mg tablet 5 mg PO Q4H PRN (Reason: pain) 7 Days Qty: 42 0RF ondansetron HCl 4 mg tablet 4 mg PO Q8H PRN (Reason: nausea and vomiting) 5 Days Qty: 15 0RF Continued Therems-M 1 TABLET tablet 1 tab PO DAILY fluticasone propion-salmeterol [Advair Diskus] 250-50 mcg/dose Blister With Device 1 inh INHALATION BID citalopram 40 mg Tablet 40 mg PO DAILY montelukast [Singulair] 10 mg Tablet 10 mg PO QHS ascorbic acid (vitamin C) 1,000 mg Capsule, Extended Release 1,000 cap PO DAILY bupropion HCl [Wellbutrin XL] 150 mg Tablet Extended Release 24 Hr 150 mg PO QHS zinc 50 mg Capsule 50 mg PO DAILY omeprazole magnesium 20 mg Capsule,Delayed Release(Dr/Ec) 20 mg PO DAILY albuterol sulfate [ProAir HFA] 90 mcg/actuation Hfa Aerosol Inhaler 1 inh INHALATION Q6H PRN (Reason: SOB) loratadine [Claritin] 10 mg Tablet 10 mg PO DAILY PRN (Reason: seasonal allergies) Referrals / Follow Up: Diane Peralta DO [Primary Care Provider] - Disposition Disposition (needs filled in before D/C Order can be placed): Home, Self Care
--- NOTE | 2022-01-28 16:54 | PCM.OPRPT ---
Report of Operation Date of Procedure: 01/28/22 Description of Surgical Findings:: Preoperative diagnosis: 1. Left shoulder rotator cuff tear 2. Left shoulder subacromial impingement syndrome 3. Symptomatic left acromioclavicular arthrosis 4. Symptomatic left long head of biceps tendinitis Postoperative diagnosis: 1. Left shoulder rotator cuff tear 2. Left shoulder subacromial impingement syndrome 3. Symptomatic left acromioclavicular arthrosis 4. Partial long head of biceps tendon tear Procedure: 1. Diagnostic and operative left shoulder arthroscopy with rotator cuff repair 2. Left shoulder subacromial decompression 3. Left shoulder arthroscopic distal clavicle excision 4. Left shoulder arthroscopic debridement of labrum, capsular synovitis, subacromial bursitis 5. Left shoulder arthroscopic biceps tenodesis Primary Surgeon: Bertin Thomas DO Surveillance Inspector: Kathrin Marr PA-C Anesthesia: General LMA with interscalene block Anesthesiologist: Dr. Gracia Complications: None apparent Specimen: None Estimated blood loss: 10 cc IV fluids: Per anesthesia record Urine output: None Packing/drains: None Implants: Arthrex 4.75 mm swivel lock anchor x2 Intraoperative findings: Extensive synovitis right shoulder, degenerative labral and biceps tearing, extensive left shoulder subacromial bursitis, Downsloping acromioclavicular joint and distal acromion, full-thickness anterior cable supraspinatus tear without retraction Preoperative indications: This is a 56-year-old male seen in the outpatient setting for left shoulder pain. He had profound weakness of his supraspinatus. I recommended an MRI due to the degree of weakness. MRI confirmed full-thickness rotator cuff tear. He also had symptomatic AC joint arthrosis, pain over his biceps tendon, subacromial impingement syndrome which may have put him at risk for the rotator cuff tear. I recommended a left shoulder diagnostic and operative arthroscopy with subacromial decompression, rotator cuff repair, biceps tenodesis and distal clavicle excision. We discussed at length the risks, benefits, alternatives the procedure. Risks included but were not limited to bleeding, infection, loss of life or limb, nonhealing tendon, persistent pain, persistent weakness, stiffness, need for prolonged immobilization, prolonged therapy, DVT or PE, risk of anesthesia, neurovascular injury, need for additional surgery. Patient expressed understanding these risks and wished to proceed with surgery. Description of procedure: Patient was identified in the preoperative holding area by name, medical record number, and date of . Informed consent was confirmed with the patient. The operative extremity was marked with a surgical marker. All questions were answered to the patient's satisfaction. An interscalene block was administered prior to the procedure by the anesthesia staff. At time of his procedure, patient was brought to the operative suite and positioned supine a standard operating table with a beachchair attachment. All bony prominences were well-padded. General anesthesia was induced and laryngeal mask airway placed. After the tube was secured, we elevated the head of the bed to position the patient into the beachchair position. A pillow was placed on the patient's legs. All bony prominences were well-padded. The nonoperative extremity was placed in a well arm kaplan. A strap was placed across the patient's torso and the butterfly attachment of the bed was removed to gain access to the posterior scapula. We then spun the bed approximately 45 degrees. We then prepped and draped the operative upper extremity in a normal, sterile orthopedic fashion. We performed a timeout with all parties in attendance in agreement with the side, site, and operation be performed. No concerns were voiced and we elected to proceed. 2 g Ancef was administered prior to the incision by anesthesia staff. I first outlined the bony landmarks of the shoulder. I established a standard posterior portal with an 11 blade scalpel. Blunt tipped trocar in cannula was inserted into the glenohumeral joint. The joint was insufflated with normal saline solution with epinephrine in the first 2 bags. Trocar was removed and diagnostic arthroscopy was commenced. The subscapularis tendon was intact with minimal interstitial tearing noted. The anterior portion of the supraspinatus was noted to be torn. There was partial approximately 50% tearing of the long of the biceps tendon just distal to its insertion on the labrum. There was degenerative labral tearing noted. I then turned my attention to the biceps tendon. I performed a loop and tack fixation with a fiber loop suture just distal to the tear. A tenotomy was then performed. I allowed the tendon to retract into the groove. I then passed the suture through the eyelet of a swivel lock anchor. I punched for the anchor at a level high in the bicipital groove. I then tensioned the suture and placed the swivel lock anchor with excellent bony purchase. Sutures were cut flush with the anchor. I then withdrew the arthroscope and cannula, reintroduced the blunt tipped trocar to the cannula and inserted into the subacromial space. I established a standard lateral portal with the assistance of a spinal needle and subsequent 11 blade scalpel. The radial resector was then introduced through the lateral portal and a subacromial bursectomy was performed as there was extensive bursitis in the subacromial space. The undersurface of the acromion was skeletonized with the radiofrequency ablator as well as peeling off the undersurface and attachment of the coracoacromial ligament. There was a downsloping likely type II spur off the distal portion of the acromion. This was resected utilizing the 5.5 mm bur to a flat acromion. The acromioclavicular joint capsule was then identified and the inferior portion was released with the radiofrequency ablator. I then turned our attention to the supraspinatus tear. I established under direct visualization a supplementary anterior superior lateral portal for suture passing. I exposed the footprint of the torn portion of the rotator cuff with the radiofrequency ablator. Footprint was decorticated with the arthroscopic bur. I proceeded with a ripstop type single anchor lateral row repair. A fiber tape was passed utilizing the retrograde scorpion suture passer through first the anterior and then posterior limbs of the crescent tear. We then passed a fiber loop medial to the fiber tape. These were then tensioned. They were passed through the eyelet of a 4.75 mm swivel lock anchor. I then selected a point approximately 5 mm lateral to the supraspinatus footprint. The Arthrex anchor punch was then passed in appropriate depth and withdrawn. The anchor was then placed and sutures tensioned. A swivel lock was impacted and subsequently tightened to an appropriate depth with excellent, appropriate tension of the suture. The tear appeared to reapproximate to its [place] footprint very well without excessive tension. There were no identifiable dogears. I then turned my attention to the distal clavicle. Approximately 8 mm of the distal clavicle was then excised with a 5.5 mm arthroscopic bur leaving the posterior and superior portions of the joint capsule intact. The subacromial space was then thoroughly lavaged. Arthroscopic instruments were removed. Portal sites were closed in interrupted [id number] fashion with 4-0 nylon suture. Sterile compression dressing was applied. Patient was then placed in UltraSling. He was able to be safely extubated in the operative suite. He was transferred to his gurney and subsequently to PACU in stable condition. Need for skilled registered dental assistant: Kathrin Marr PA-C was critical to the outcome of the case. During the course of the procedure the physician registered dental assistant played a vital role. Her intimate knowledge of my steps in the procedure aided in safe and expedient completion of the procedure. The PA played a vital role in positioning particularly in obtaining the appropriate positioning. The PA was also vital in the retraction of soft tissues during the exposure and protecting vital structures. The PA was also vital and obtaining tendon reduction and assisting with hardware placement. She also played a vital role in closure and sling application with my direct supervision. Postoperative plan: Patient will be nonweightbearing to the operative extremity. He should maintain his sling at all times unless to shower. He may shower on postoperative day #2 if no significant drainage. He will follow up in approximately 2 weeks for suture removal. We will plan to initiate twice daily aspirin for DVT prophylaxis starting tomorrow. Prescription for oxycodone was sent to his pharmacy for postoperative analgesia.
== END 2022-01-28 15:59 | disposition home or self-care (01) ==
LOC: SDC 09:12 → AC 09:16
PROVIDERS: Anesthesiology; PCP Internal Medicine; Referring Provider Student in an Organized Health Care Education/Training Program; Visit Provider Student in an Organized Health Care Education/Training Program
PROC: (CPT 29827; principal; 2022-01-28 10:20)
DX: M19.012 Primary osteoarthritis, left shoulder (principal); M65.811 Other synovitis and tenosynovitis, right shoulder; M75.42 Impingement syndrome of left shoulder; M75.20 Bicipital tendinitis, unspecified shoulder; M75.52 Bursitis of left shoulder; M75.102 Unspecified rotator cuff tear or rupture of left shoulder, not specified as traumatic; M75.120 Complete rotator cuff tear or rupture of unspecified shoulder, not specified as traumatic; J45.909 Unspecified asthma, uncomplicated; F32.A Depression, unspecified; K21.9 Gastro-esophageal reflux disease without esophagitis; S46.012A Strain of muscle(s) and tendon(s) of the rotator cuff of left shoulder, initial encounter; M75.22 Bicipital tendinitis, left shoulder; E66.3 Overweight; R03.0 Elevated blood-pressure reading, without diagnosis of hypertension; Z68.29 Body mass index [BMI] 29.0-29.9, adult
CPT/HCPCS: 29827; 29826; 29824; 29806; 29828; 01630; 36415; 71046; 80048; 80076; 85025; 85610; 85730; 93005; C1776; J7120; J2405

== ENCOUNTER → 2022-05-17 | Outpatient (CLI) | payer OTHER, SELFPAY ==
[2022-05-17 12:44] LABS: Absolute Lymphocyte Count 2.14 X10^3/uL (0.83-4.51); Absolute Neutrophil Count 5.8 X10^3/uL (2.0-7.7); Basophil# 0.07 X10^3/uL; Basophil% 0.8 % (0-1); Eosinophils% 2.2 % (0-5); Hematocrit 42.7 % (40-54); Hemoglobin 14.7 g/dL (13.0-16.5); Lymphocyte # 2.14 X10^3/ul (0.83-4.51); Lymphocyte % 23.6 % (19-41); Mean Corp Hgb Conc 34.4 g/dL (32-36); Mean Corpuscular Hgb 32.6 pg (27.0-32.0); Mean Corpuscular Volume 94.7 fL (80-94); Mean Platelet Vol. 9.3 fl (6.2-12.0); Monocyte# 0.83 X10^3/uL; Monocyte% 9.2 % (0-10); NRBC Flagged by Analyzer 0 % (0-5); Neutrophil # 5.79 X10^3/uL (2.7-7.7); Neutrophil % 63.9 % (47-70); Platelet Count 283 K/mm3 (150-450); RBC Distribution Width CV 13.2 % (11.6-14.6); RBC Distribution Width SD 45.9 fl (35.1-43.9); Red Blood Count 4.51 M/mm3 (4.6-6.2); White Blood Count 9.1 K/mm3 (4.4-11.0)
[2022-05-19 17:07] LABS: Alternaria tenuis <0.10 kU/L (Class 0); Ash, White <0.10 kU/L (Class 0); Aspergillus fumigatus <0.10 kU/L (Class 0); Bermuda Grass <0.10 kU/L (Class 0); Birch <0.10 kU/L (Class 0); Black Walnut 0.11 kU/L (Class 0/I); Cat Hair / Dander,Stand <0.10 kU/L (Class 0); Cladosporium herbarum <0.10 kU/L (Class 0); Cockroach, American <0.10 kU/L (Class 0); Cottonwood <0.10 kU/L (Class 0); D farinae Mite 8.55 kU/L (Class IV); D pteronyssinus 9.25 kU/L (Class IV); Dog Epithelia 0.24 kU/L (Class 0/I); Elm, American White <0.10 kU/L (Class 0); Immunoglobulin E 111 IU/mL (6-495); Maple/Box Elder <0.10 kU/L (Class 0); Mulberry, White <0.10 kU/L (Class 0); Oak, White <0.10 kU/L (Class 0); Pecan <0.10 kU/L (Class 0); Penicillium Notatum <0.10 kU/L (Class 0); Pigweed, Rough <0.10 kU/L (Class 0); Ragweed, Short/Common <0.10 kU/L (Class 0); Russian Thistle <0.10 kU/L (Class 0); Sheep Sorrel <0.10 kU/L (Class 0); Sycamore, American <0.10 kU/L (Class 0); Timothy Grass <0.10 kU/L (Class 0)
[2022-05-19 21:20] LABS: Mouse Urine <0.10 kU/L (Class 0)
[2022-05-21 19:07] LABS: Aspirgillus flavus Negative (Neg:<1:1); Aspirgillus fumigatus Negative (Neg:<1:1); Aspirgillus niger Negative (Neg:<1:1)
[2022-05-22 08:54] LABS: Immunoglobulin E 115 IU/mL (6-495)
== END | disposition home or self-care (01) ==
LOC: LAB 12:02
PROVIDERS: PCP Internal Medicine; Referring Provider Internal Medicine Critical Care Medicine; Visit Provider Internal Medicine Critical Care Medicine
DX: R05.9 Cough, unspecified (principal)
CPT/HCPCS: 36415; 82785; 85025; 86003; 86606

== ENCOUNTER → 2022-06-04 | Outpatient (CLI) | payer OTHER, SELFPAY ==
--- NOTE | 2022-06-04 11:53 | CPS ---
OCCURRED AT TIME OF PATIENT TESTING-0815 TODAY. DURING PFT, PT HAD SYNCOPAL EPISODE AT END OF SPIROMETRY TESTING. HR AND RR WERE STABLE, HOWEVER PT HAD COMPLETE LOC FOR SEVERAL SECONDS. HE WAS IN A SITTING POSITION, THIS RT SAT NEXT TO PATIENT DURING THIS TEST ( CAUTIONED THIS MIGHT HAPPEN). THIS RT CONTINUED TO CALL PT BY NAME AND PROVIDE ASSURANCE HE WAS OK. HE OPENED HIS EYES AND LOOKED AROUND FOR ABOUT 20 SECONDS BEFORE BEING ABLE TO VERBALLY RESPOND. HE WAS NOTED TO HAVE FISTS AND JAW CLENCHED, DROOL COMING FROM HIS MOUTH, BUT NO TONGUE BITE OR LOSS OF BOWEL/BLADDER. THIS ALSO HAPPENED TO A LESSER DEGREE WHILE HE WAS COUGHING DURING TESTING. NO AEROSOL GIVEN OR POST SPIROMETRY DONE FOR THESE REASONS. PT WAS BACK TO BASELINE, ENCOURAGED FOLLOWUP WITH HIS PCP.
--- NOTE | 2022-06-04 18:48 | PFTCOMP_ITS ---
Date of Study: June 04, 2022 Study Type: Complete pulmonary function testing Indication: Cough Referring Provider: Randall Goldman DO Patient: Medhat Juarez : 1965 Spirometry pre-bronchodilator only was normal. Lung volumes by plethysmography were normal, with no evidence of restriction or hyperinflation. DLCO by single breath carbon monoxide technique was normal. If further evaluation of possible reactive airways disease is clinically indicated, methacholine challenge testing is recommended. Blair Johns MD MS FCCP FACP Pulmonary Medicine [facility]
== END | disposition home or self-care (01) ==
LOC: PSN 07:57
PROVIDERS: PCP Internal Medicine; Referring Provider Internal Medicine Critical Care Medicine; Visit Provider Internal Medicine Critical Care Medicine
DX: R05.9 Cough, unspecified (principal)
CPT/HCPCS: 94010; 94726; 94729